=== PATIENT | male | born 1965 | race Caucasian/White ===

== ENCOUNTER 2024-04-29 09:39 | Outpatient (AMB) | payer MEDICAID, SELFPAY ==
[2024-04-29 11:04] VITALS: BP 145/93; PULSE 91; RESP 19; TEMP 36.4; O2SAT 92; BMI 34.4
--- NOTE | 2024-04-29 11:04 | ORTHONT_ITS ---
Vital signs 04/29/24 11:04 Height 1.65 m Height Method Stated Weight 93.667 kg Weight Measurement Method Standing Scale BMI 34.4 BP 145/93 H Blood Pressure Source Automatic Cuff Blood Pressure Location Left Upper Arm Position Sitting Respiration 19 Pulse 91 Pulse Source Monitor Temp 97.5 F Temp Source Temporal Artery Scan Pulse Oximetry (%) 92 L Oxygen Delivery Method Room Air Med/Allergies Allergies & Medications Allergies No Known Allergies Allergy (Verified 04/29/24 11:04) Subjective Visit Visit for: follow up visit and knee Immunization / Flu Flu Vaccine in the Last 12 Months: No Flu Vaccine Exclusion Criteria: No Exclusion Criteria History of Present Illness Chief complaint: BILATERAL KNEE PAIN Patient is a pleasant 57-year-old male with bilateral knee pain. He has significant varus deformity. He is using a cane. The pains been ongoing for over a year. He is tried over 3 injection as his knees. He has tried anti- inflammatories including ibuprofen as well. 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 Exam Exam Patient is in no acute distress and is cooperative with the examination today. Breathing is nonlabored. In no respiratory distress. Bilateral extremities were evaluated and demonstrates sensation intact to light touch. Palpable pedal pulses are present. No significant edema is present. Bilateral hips were examined. The patient has no pain with log roll of the hips. Internal rotation to 30 degrees and external rotation to 30 degrees is painless. Negative FADIR. The left knee was examined. The left knee is in [varus] alignment. Range of motion from [0-115] degrees. Knee is stable to varus and valgus as well as AP translation with <5mm. Patient has a [negative] McMurrays. There is [no] pain with patellofemoral compression and [no] crepitus noted. The knee is [tender] to palpation [medially]. The right knee was also examined. The right knee is in [varus] alignment. Range of motion from [0-120] degrees. Knee is stable to varus and valgus as well as AP translation with <5mm. Patient has a [negative] McMurrays. There is [no] pain with patellofemoral compression and [no] crepitus noted. The knee is [tender] to palpation [medially]. X-rays demonstrate significant varus alignment and deformity. There is completeObliteration of the medial joint space Assessment and Plan Problem List (1) Degenerative arthritis of knee, bilateral: Status: Acute Plan: Patient is a pleasant 57-year-old male with bilateral knee arthritis with a significant severity. We discussed nonoperative and operative options. He is failed conservative treatment occluding anti-inflammatories, and injections. We thus discussed total knee replacement as a reasonable option. He would like to start on the right as this is significantly worse. We answered all his questions today Plan The nature and purpose of the total knee replacement, alternative method(s) of treatment, the material risks involved, and the possibility of complications were fully explained to the patient. The patient does NOT have any of the following contraindications to TKA: - Active infection of the knee joint, OR - Active systemic bacteremia, OR - Active skin infection or open wound at surgical site, OR - Neuropathic arthritis, OR - Severe, rapidly progressive neurological disease, OR - Severe medical condition that makes risks of surgery outweigh the potential benefit The patient was told the most common risks and complications associated with a total knee replacement include, but are not limited to: blood clots in the leg, fatal pulmonary embolism, dislocation of the prosthesis, intraoperative and postoperative fractures of the femur or tibia, infection, failure of the prosthesis or grafting materials, complications from anesthesia, reactions to blood transfusions, postoperative leg length inequality, instability of the knee replacement, nerve damage or injury, vascular injury, delayed wound healing, infection, other injury or even . In addition, there are risks associated with anesthesia given during this operation. Also, the patient was told that after undergoing a total knee replacement there may still be persistent pain or disability. The patient was informed that the success of this operation in part depends upon the mechanical devices which are going to be implanted and that these devices can fail or malfunction, and may need to be repaired or replaced and there are no guarantees as to the longevity of this device or its parts and that it or its parts could fail prematurely. The patient was also notified that during the course of surgery, there may be a need to use bone graft from donors, and that any bone graft used will be carefully screened for communicable diseases, including AIDS, hepatitis, Mendez-Creutzfeldt, or other diseases, but despite the screening procedures, there is a small chance that they could contract one of these diseases. Finally, the patient was asked to follow completely and fully with all advice and recommended treatments, and that recovery and ultimate outcome are affected by their compliance with recommended treatment. We discussed the risks, benefits and treatment alternatives, and the patient is interested in proceeding with surgery. We will try to set this up as expeditiously as possible. Office Procedures GNS Level of Care Nursing/Assessment Patient Status: Established Patient Nursing Assessment/Reassesment: Medication Reconciliation, Update PMH in EMR and Vital Signs Coordination of Care: Complex Care and Chronic Disease 1-5, Education Complex Pt/Fam, Consent,records obtained, informed consent, Results/Orders obtained and Staff clarify orders Special Needs: Language special needs Established Patient Charge Established Patient Point Assignment: 95 Established Patient Point Charge: EP Level 3 (80-115) Past Medical History Past Medical History Have you ever been diagnosed with any of the following: Respiratory Problems Smoking: No Smoking Exposure: No Tobacco Use: No
== END 2024-04-29 11:28 | disposition home or self-care (01) ==
LOC: HODSRG 09:39
PROVIDERS: Supervising Provider Orthopaedic Surgery Adult Reconstructive Orthopaedic Surgery; Visit Provider Orthopaedic Surgery Adult Reconstructive Orthopaedic Surgery
DX: M17.0 Bilateral primary osteoarthritis of knee (principal); M25.562 Pain in left knee; M25.561 Pain in right knee; M21.10 Varus deformity, not elsewhere classified, unspecified site
CPT/HCPCS: 99213; G0463

== ENCOUNTER → 2024-05-05 | Day surgery (SDC) | payer MEDICAID, SELFPAY ==
[2024-05-02 09:52] VITALS: BMI 32.1
[2024-05-02 11:24] LABS: Basophils # (Auto) 0.1 Thou/mm3 (0.0-0.2); Basophils % (Auto) 1 % (0-2.5); Eosinophils % (Auto) 0 % (0-10); Hematocrit 44.9 % (41.0-53.0); Hemoglobin 15.2 g/dL (13.5-16.0); Immature Granulocytes % (Auto) 7 % (0-0); Immature Granulocytes Auto 0.67 Thou/mm3 (0.00-0.00); Lymphocytes # (Auto) 1.8 Thou/mm3 (1.0-4.8); Lymphocytes % (Auto) 18 % (10-50); Mean Corpuscular HGB Conc 33.9 g/dl (31.0-37.0); Mean Corpuscular Hemoglobin 32.2 pg (25.0-35.0); Mean Corpuscular Volume 95 fL (80-100); Monocytes # (Auto) 0.7 Thou/mm3 (0.0-0.8); Monocytes % (Auto) 7 % (0-12); Neutrophils # (Auto) 6.7 Thou/mm3 (1.8-7.7); Neutrophils % (Auto) 68 % (37-80); Nucleated Red Blood Cell # 0.03 Thou/mm3 (0.00-0.00); Nucleated Red Blood Cell % 0 /100 WBC (0); Platelet Count 220 Thou/mm3 (140-440); RDW Standard Deviation 52.3 fL (35.1-43.9); Red Blood Count 4.72 Miln/mm3 (4.50-5.90)
[2024-05-02 11:38] LABS: Alanine Aminotransferase 150 U/L (10-49); Albumin, Serum 4.7 gm/dL (3.5-5.0); Alkaline Phosphatase 200 U/L (46-116); Anion Gap 7 (7-16); Aspartate Amino Transferase 42 U/L (0-34); BUN/Creatinine Ratio 29 Ratio (12-20); Bilirubin,Total 0.9 mg/dL (0.3-1.2); Blood Urea Nitrogen 23 mg/dL (9-23); Calcium 9.4 mg/dL (8.3-10.6); Calcium (Corrected) 9.4 mg/dL (8.5-10.1); Carbon Dioxide 27.4 mMol/L (20.0-31.0); Chloride 103 mMol/L (98-107); Creatinine (Component) 0.8 mg/dL (0.6-1.3); Estimated Creatinine Clearance 109.3 mL/min (>60); Globulin 2.4 gm/dL (2.3-3.5); Glucose 364 mg/dL (74-106); Osmolality,Calculated 292 (275-295); Potassium 4.4 mMol/L (3.4-5.1); Sodium 137 mMol/L (136-145); Total Protein 7.1 gm/dL (5.7-8.2); eGFR > 60 See Note
[2024-05-02 12:20] LABS: INR 0.9 (0.9-1.3); Partial Thromboplastin Time 22.2 Seconds (22.0-36.0); Prothrombin Time 9.8 Seconds (9.0-12.2)
--- NOTE | 2024-05-02 14:29 | SUR.PREOP ---
Pt's glucose 364, I contacted pt, he stated he was told by primary Dr that he was prediabetic and was given meds which when he was done with those, he was prescribed another med for diabetes, pt stated he was not feeling well with the new diabetes meds and went back to primary Dr which told him it was ok to stop taking them but did not prescribed new ones, pt stated he came fasting this morning, Dr Birch was notified and he stated he wants A1c on arrival on Sunday. Pt's AST its 150 Dr Birch notified.
--- NOTE | 2024-05-02 15:29 | SUR.PREOP ---
Labs reviewed with Dr Gutiérrez. Dr Gutiérrez notified about A1c order for Sunday morning, Lab stated A1c takes 1 to 2 hrs to result and if its too high it will be a send out, message left at Dr Birch's office about how long it takes for A1c.
--- NOTE | 2024-05-02 15:32 | SUR.PREOP ---
Cardiac records reviewed with Dr Gutiérrez.
[2024-05-05 08:47] LABS: Glucose Estimated Average 246 mg/dL (80-131); Hemoglobin A1C 10.2 % Hgb (4.8-6.0)
[2024-05-05 08:50] VITALS: BP 131/91; PULSE 84; RESP 16; TEMP 36.2; O2SAT 97; BMI 31.9
--- NOTE | 2024-05-05 09:00 | SUR.PREOP ---
Dr. Birch made aware of A1C results and glucose of 302 this morning. Pt states he has not ate or drank anything since [address] Birch states he will talk to patient regarding results and provide further instructions.
--- NOTE | 2024-05-05 10:05 | SUR.PREOP ---
Dr. Birch at bedside. Surgery cancelled by Dr. Birch due to A1C level. Pt aware to follow up with primary care physician and surgery will be rescheduled.
== END | disposition home or self-care (01) ==
LOC: S2EX 08:20
PROVIDERS: Anesthesiology; PCP Physician Assistant; Referring Provider Orthopaedic Surgery Adult Reconstructive Orthopaedic Surgery; Visit Provider Orthopaedic Surgery Adult Reconstructive Orthopaedic Surgery
PROC: (CPT 27447; principal; 2024-05-05 12:45)
DX: M17.11 Unilateral primary osteoarthritis, right knee (principal); Z53.8 Procedure and treatment not carried out for other reasons
CPT/HCPCS: 27447; 36415; 80048; 80053; 83036; 85025; 85610; 85730

== ENCOUNTER 2024-05-23 09:50 | Outpatient (AMB) | payer MEDICAID, SELFPAY ==
--- NOTE | 2024-05-23 10:21 | PD.ORTHCLVIS ---
Vital signs 05/23/24 10:22 Height 1.68 m Height Method Stated Weight 93.497 kg Weight Measurement Method Standing Scale BMI 33.3 BP 132/85 H Blood Pressure Source Automatic Cuff Blood Pressure Location Left Upper Arm Position Sitting Respiration 18 Pulse 113 H Pulse Source Monitor Temp 97.3 F Temp Source Temporal Artery Scan Pulse Oximetry (%) 96 Oxygen Delivery Method Room Air Med/Allergies Allergies & Medications Allergies No Known Allergies Allergy (Verified 05/23/24 10:22) Medication Reconciliation losartan 50 mg tablet 50 mg PO QDAY 05/02/24 [History Confirmed 05/23/24] empagliflozin 10 mg tablet (Jardiance) 10 mg PO QAM 05/23/24 [History Confirmed 05/23/24] glipizide 2.5 mg tablet 2.5 mg PO QDAY 05/23/24 [History Confirmed 05/23/24] metformin 500 mg tablet 500 mg PO QDAY 05/23/24 [History Confirmed 05/23/24] Exam Exam Patient is in no acute distress and is cooperative with the examination today. Breathing is nonlabored. In no respiratory distress. Bilateral extremities were evaluated and demonstrates sensation intact to light touch. Palpable pedal pulses are present. No significant edema is present. Bilateral hips were examined. The patient has no pain with log roll of the hips. Internal rotation to 30 degrees and external rotation to 30 degrees is painless. Negative FADIR. The left knee was examined. The left knee is in [varus] alignment. Range of motion from [0-115] degrees. Knee is stable to varus and valgus as well as AP translation with <5mm. Patient has a [negative] McMurrays. There is [no] pain with patellofemoral compression and [no] crepitus noted. The knee is [tender] to palpation [medially]. The right knee was also examined. The right knee is in [varus] alignment. Range of motion from [0-120] degrees. Knee is stable to varus and valgus as well as AP translation with <5mm. Patient has a [negative] McMurrays. There is [no] pain with patellofemoral compression and [no] crepitus noted. The knee is [tender] to palpation [medially]. X-rays demonstrate significant varus alignment and deformity. There is completeObliteration of the medial joint space Assessment and Plan Problem List (1) Degenerative arthritis of knee, bilateral: Status: Acute Plan: Patient is a pleasant 57-year-old male with bilateral knee arthritis with a significant severity. We discussed nonoperative and operative options. He is failed conservative treatment occluding anti-inflammatories, and injections. We thus discussed total knee replacement as a reasonable option. He would like to start on the right as this is significantly worse. We answered all his questions today Plan We are currently awaiting a hemoglobin A1c that demonstrates that sugars are well-controlled. We are ordering 1 for him today. We can schedule for surgery once his sugars are Office Procedures GNS Level of Care Nursing/Assessment Patient Status: Established Patient Nursing Assessment/Reassesment: Medication Reconciliation, Update PMH in EMR and Vital Signs Coordination of Care: Complex Care and Chronic Disease 1-5, Education Complex Pt/Fam, 1 Ins Authorization and Staff clarify orders Special Needs: Language special needs Established Patient Charge Established Patient Point Assignment: 100 Established Patient Point Charge: EP Level 3 (80-115) MA Intake Visit Data Collection New Patient or Established: Established Patient (seen at [facility] within 3 years) Reason for Visit:: RT KNEE PAIN Seen by Clinical Staff ONLY (RN/MA): No Gypsum Roofer Required: Yes PCP or OBGYN visit in last 3 months: Yes Do You Feel Safe at Home: Yes Questionairres Past Medical History Past Medical History Have you ever been diagnosed with any of the following: Neurological Problems Seizures: No Cardiology Problems Congestive Heart Failure: No Hypertension: Yes Respiratory Problems Chronic Obstructive Pulmonary Disease (COPD): No Smoking: No Smoking Exposure: No Tobacco Use: No Stomache/Intestinal Problems Obesity: Yes Genital/Urinary Problems Renal Disease: No Musculoskeletal Problems Arthritis: Yes Endocrine Problems Diabetes Mellitus Type 1: No Diabetes Mellitus Type 2: No Other Problems Hospitalization: No Shingles: No Blood Transfusions: No Blood Transfusion Reaction: No Anesthesia Reactions: No Cancer: No Subjective Visit Visit for: follow up visit and knee Immunization / Flu Flu Vaccine in the Last 12 Months: Yes Flu Vaccine Exclusion Criteria: Already Received History of Present Illness Chief complaint: RT KNEE PAIN Patient is a 58-year-old male with right knee pain and right knee arthritis. He has significant arthritis and was set up for surgery. His surgery was canceled as his A1c was over 10. We will repeat his hemoglobin A1c. I discussed with him that needs to be under 8 in order to proceed with surgery Personal History BMI Counceling provided: Yes Pain Pain level (0-10): 8 Pain duration: CONSTANT Pain location: inside (medial), outside (lateral), anterior and posterior Pain quality: aching Pain timing: increases with activity Associated signs & symptoms: weakness Ambulatory data Ambulatory device: cane Treatments Number of previous injections: 2 Improvement with previous injections: No Review of Systems Review of Systems: All systems negative unless otherwise noted in HPI.
[2024-05-23 10:22] VITALS: BP 132/85; PULSE 113; RESP 18; TEMP 36.3; O2SAT 96; BMI 33.3
== END 2024-05-23 10:45 | disposition home or self-care (01) ==
LOC: HODSRG 09:50
PROVIDERS: PCP Physician Assistant; Referring Provider Physician Assistant; Supervising Provider Orthopaedic Surgery Adult Reconstructive Orthopaedic Surgery; Visit Provider Orthopaedic Surgery Adult Reconstructive Orthopaedic Surgery
DX: M17.0 Bilateral primary osteoarthritis of knee (principal); M25.561 Pain in right knee; I10 Essential (primary) hypertension
CPT/HCPCS: 99213; G0463

== ENCOUNTER 2024-06-24 11:59 | Outpatient (AMB) | payer MEDICAID, SELFPAY ==
--- NOTE | 2024-06-24 11:56 | PD.ORTHTELE ---
Med/Allergies Allergies & Medications Allergies No Known Allergies Allergy (Verified 06/24/24 11:56) Medication Reconciliation losartan 50 mg tablet 50 mg PO QDAY 05/02/24 [History Confirmed 06/24/24] empagliflozin 10 mg tablet (Jardiance) 10 mg PO QAM 05/23/24 [History Confirmed 06/24/24] glipizide 2.5 mg tablet 2.5 mg PO QDAY 05/23/24 [History Confirmed 06/24/24] metformin 500 mg tablet 500 mg PO QDAY 05/23/24 [History Confirmed 06/24/24] Subjective Visit Visit for: follow up visit, knee and other (specify) Immunization / Flu Flu Vaccine in the Last 12 Months: Yes Flu Vaccine Exclusion Criteria: Already Received History of Present Illness Chief complaint: F/U A1C 7 SURGERY RIGHT KNEE WORSEN Patient is a pleasant 57-year-old male with bilateral knee pain. He has significant varus deformity. He is using a cane. The pains been ongoing for over a year. He is tried over 3 injection as his knees. He has tried anti-inflammatories including ibuprofen as well. His sugars are now well-controlled and his hemoglobin A1c is 6.1. 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 Assessment and Plan Problem List (1) Degenerative arthritis of knee, bilateral: Status: Acute Plan Patient is a 58-year-old male with severe arthritis of both knees with complete obliteration of the medial joint space and varus deformity. We were previously waiting for his sugars to be well-controlled. His hemoglobin A1c is now 6.1. We thus discussed total knee replacement is a reasonable option. He would like to start on the right The nature and purpose of the total knee replacement, alternative method(s) of treatment, the material risks involved, and the possibility of complications were fully explained to the patient. The patient does NOT have any of the following contraindications to TKA: - Active infection of the knee joint, OR - Active systemic bacteremia, OR - Active skin infection or open wound at surgical site, OR - Neuropathic arthritis, OR - Severe, rapidly progressive neurological disease, OR - Severe medical condition that makes risks of surgery outweigh the potential benefit The patient was told the most common risks and complications associated with a total knee replacement include, but are not limited to: blood clots in the leg, fatal pulmonary embolism, dislocation of the prosthesis, intraoperative and postoperative fractures of the femur or tibia, infection, failure of the prosthesis or grafting materials, complications from anesthesia, reactions to blood transfusions, postoperative leg length inequality, instability of the knee replacement, nerve damage or injury, vascular injury, delayed wound healing, infection, other injury or even . In addition, there are risks associated with anesthesia given during this operation. Also, the patient was told that after undergoing a total knee replacement there may still be persistent pain or disability. The patient was informed that the success of this operation in part depends upon the mechanical devices which are going to be implanted and that these devices can fail or malfunction, and may need to be repaired or replaced and there are no guarantees as to the longevity of this device or its parts and that it or its parts could fail prematurely. The patient was also notified that during the course of surgery, there may be a need to use bone graft from donors, and that any bone graft used will be carefully screened for communicable diseases, including AIDS, hepatitis, Mendez-Creutzfeldt, or other diseases, but despite the screening procedures, there is a small chance that they could contract one of these diseases. Finally, the patient was asked to follow completely and fully with all advice and recommended treatments, and that recovery and ultimate outcome are affected by their compliance with recommended treatment. We discussed the risks, benefits and treatment alternatives, and the patient is interested in proceeding with surgery. We will try to set this up as expeditiously as possible. Office Procedures GNS Level of Care Nursing/Assessment Patient Status: Established Patient Nursing Assessment/Reassesment: Medication Reconciliation, Update PMH in EMR and Vital Signs Coordination of Care: Complex Care and Chronic Disease 1-5, Education Complex Pt/Fam, Consent,records obtained, informed consent, 2-3 Insurance Autorizations needed, Lab and Imaging orders, Results/Orders obtained and Staff clarify orders Special Needs: Language special needs Established Patient Charge Established Patient Point Assignment: 130 Telehealth Telemed Phone/Video with patient at home & Dr,PA,LEVEL VIAL CURVATURE GAUGER: Yes
== END 2024-06-24 12:59 | disposition home or self-care (01) ==
LOC: HODSRG 11:59
PROVIDERS: PCP Physician Assistant; Referring Provider Physician Assistant; Supervising Provider Orthopaedic Surgery Adult Reconstructive Orthopaedic Surgery; Visit Provider Orthopaedic Surgery Adult Reconstructive Orthopaedic Surgery
DX: M17.0 Bilateral primary osteoarthritis of knee (principal); M21.162 Varus deformity, not elsewhere classified, left knee; M21.161 Varus deformity, not elsewhere classified, right knee
CPT/HCPCS: 99212; G0463

== ENCOUNTER 2024-07-01 11:40 | Outpatient (AMB) | payer MEDICAID, SELFPAY ==
[2024-07-01 11:44] VITALS: BP 143/91; PULSE 93; RESP 18; TEMP 36.6; O2SAT 96; BMI 32.3
--- NOTE | 2024-07-01 11:44 | PD.ORTHCLVIS ---
Vital signs 07/01/24 11:44 Height 1.68 m Height Method Stated Weight 91.314 kg Weight Measurement Method Standing Scale BMI 32.3 BP 143/91 H Blood Pressure Source Automatic Cuff Blood Pressure Location Left Upper Arm Position Sitting Respiration 18 Pulse 93 Pulse Source Monitor Temp 97.8 F Temp Source Temporal Artery Scan Pulse Oximetry (%) 96 Oxygen Delivery Method Room Air Med/Allergies Allergies & Medications Allergies No Known Allergies Allergy (Verified 07/01/24 11:46) Medication Reconciliation losartan 50 mg tablet 50 mg PO QDAY 05/02/24 [History Confirmed 07/01/24] empagliflozin 10 mg tablet (Jardiance) 10 mg PO QAM 05/23/24 [History Confirmed 07/01/24] glipizide 2.5 mg tablet 2.5 mg PO QDAY 05/23/24 [History Confirmed 07/01/24] metformin 500 mg tablet 500 mg PO QDAY 05/23/24 [History Confirmed 07/01/24] Exam Exam Patient is in no acute distress and is cooperative with the examination today. Breathing is nonlabored. In no respiratory distress. Bilateral extremities were evaluated and demonstrates sensation intact to light touch. Palpable pedal pulses are present. No significant edema is present. Bilateral hips were examined. The patient has no pain with log roll of the hips. Internal rotation to 30 degrees and external rotation to 30 degrees is painless. Negative FADIR. The left knee was examined. The left knee is in [varus] alignment. Range of motion from [0-115] degrees. Knee is stable to varus and valgus as well as AP translation with <5mm. Patient has a [negative] McMurrays. There is [no] pain with patellofemoral compression and [no] crepitus noted. The knee is [tender] to palpation [medially]. The right knee was also examined. The right knee is in [varus] alignment. Range of motion from [0-120] degrees. Knee is stable to varus and valgus as well as AP translation with <5mm. Patient has a [negative] McMurrays. There is [no] pain with patellofemoral compression and [no] crepitus noted. The knee is [tender] to palpation [medially]. X-rays demonstrate significant varus alignment and deformity. There is completeObliteration of the medial joint space Assessment and Plan Problem List (1) Degenerative arthritis of knee, bilateral: Status: Acute Plan Patient is a 58-year-old male with severe arthritis of both knees with complete obliteration of the medial joint space and varus deformity. We were previously waiting for his sugars to be well-controlled. His hemoglobin A1c is now 6.1. We thus discussed total knee replacement is a reasonable option. He would like to start on the right The nature and purpose of the total knee replacement, alternative method(s) of treatment, the material risks involved, and the possibility of complications were fully explained to the patient. The patient does NOT have any of the following contraindications to TKA: - Active infection of the knee joint, OR - Active systemic bacteremia, OR - Active skin infection or open wound at surgical site, OR - Neuropathic arthritis, OR - Severe, rapidly progressive neurological disease, OR - Severe medical condition that makes risks of surgery outweigh the potential benefit The patient was told the most common risks and complications associated with a total knee replacement include, but are not limited to: blood clots in the leg, fatal pulmonary embolism, dislocation of the prosthesis, intraoperative and postoperative fractures of the femur or tibia, infection, failure of the prosthesis or grafting materials, complications from anesthesia, reactions to blood transfusions, postoperative leg length inequality, instability of the knee replacement, nerve damage or injury, vascular injury, delayed wound healing, infection, other injury or even . In addition, there are risks associated with anesthesia given during this operation. Also, the patient was told that after undergoing a total knee replacement there may still be persistent pain or disability. The patient was informed that the success of this operation in part depends upon the mechanical devices which are going to be implanted and that these devices can fail or malfunction, and may need to be repaired or replaced and there are no guarantees as to the longevity of this device or its parts and that it or its parts could fail prematurely. The patient was also notified that during the course of surgery, there may be a need to use bone graft from donors, and that any bone graft used will be carefully screened for communicable diseases, including AIDS, hepatitis, Mendez-Creutzfeldt, or other diseases, but despite the screening procedures, there is a small chance that they could contract one of these diseases. Finally, the patient was asked to follow completely and fully with all advice and recommended treatments, and that recovery and ultimate outcome are affected by their compliance with recommended treatment. We discussed the risks, benefits and treatment alternatives, and the patient is interested in proceeding with surgery. We will try to set this up as expeditiously as possible. Office Procedures GNS Level of Care Nursing/Assessment Patient Status: Established Patient Nursing Assessment/Reassesment: Medication Reconciliation, Update PMH in EMR and Vital Signs Coordination of Care: Complex Care and Chronic Disease 1-5, Education Complex Pt/Fam, Consent,records obtained, informed consent and Staff clarify orders Special Needs: Language special needs Established Patient Charge Established Patient Point Assignment: 90 Established Patient Point Charge: EP Level 3 (80-115) MA Intake Visit Data Collection New Patient or Established: Established Patient (seen at [facility] within 3 years) Reason for Visit:: PRE OP RIGHT TKA Seen by Clinical Staff ONLY (RN/MA): No Family Advocate Required: Yes PCP or OBGYN visit in last 3 months: Yes Hx Now: No Do You Feel Safe at Home: Yes Authorities Contacted: N/A Questionairres Past Medical History Past Medical History Have you ever been diagnosed with any of the following: Neurological Problems Seizures: No Cardiology Problems Congestive Heart Failure: No Hypertension: Yes Respiratory Problems Chronic Obstructive Pulmonary Disease (COPD): No Smoking: No Smoking Exposure: No Tobacco Use: No Stomache/Intestinal Problems Obesity: Yes Genital/Urinary Problems Renal Disease: No Musculoskeletal Problems Arthritis: Yes Endocrine Problems Diabetes Mellitus Type 1: No Diabetes Mellitus Type 2: No Other Problems Hospitalization: No Shingles: No Blood Transfusions: No Blood Transfusion Reaction: No Anesthesia Reactions: No Cancer: No Subjective Visit Visit for: follow up visit and knee Immunization / Flu Flu Vaccine in the Last 12 Months: No Flu Vaccine Exclusion Criteria: No Exclusion Criteria History of Present Illness Chief complaint: RT KNEE PAIN Patient is a 58-year-old male with right knee pain and right knee arthritis. He has significant arthritis and was set up for surgery. His surgery was canceled as his A1c was over 10. We will repeat his hemoglobin A1c. I discussed with him that needs to be under 8 in order to proceed with surgery Personal History BMI Counceling provided: Yes Pain Pain level (0-10): 6 Pain duration: CONSTANT Pain location: inside (medial), outside (lateral), anterior and posterior Pain quality: aching Pain timing: increases with activity Associated signs & symptoms: none Ambulatory data Ambulatory device: cane Treatments Number of previous injections: 2 Improvement with previous injections: No Improvement with PT: No Improvement with NSAIDS: no Review of Systems Review of Systems: All systems negative unless otherwise noted in HPI.
== END 2024-07-01 11:48 | disposition home or self-care (01) ==
LOC: HODSRG 11:40
PROVIDERS: PCP Physician Assistant; Referring Provider Physician Assistant; Supervising Provider Orthopaedic Surgery Adult Reconstructive Orthopaedic Surgery; Visit Provider Orthopaedic Surgery Adult Reconstructive Orthopaedic Surgery
DX: M17.0 Bilateral primary osteoarthritis of knee (principal); M21.162 Varus deformity, not elsewhere classified, left knee; M21.161 Varus deformity, not elsewhere classified, right knee; M25.561 Pain in right knee; I10 Essential (primary) hypertension
CPT/HCPCS: 99213; G0463

== ENCOUNTER 2024-07-09 10:45 | Day surgery (SDC) | payer MEDICAID, SELFPAY ==
[2024-07-08 11:11] VITALS: BMI 32.4
[2024-07-08 12:36] LABS: Basophils # (Auto) 0.1 Thou/mm3 (0.0-0.2); Basophils % (Auto) 1 % (0-2.5); Eosinophils % (Auto) 0 % (0-10); Hematocrit 49.7 % (41.0-53.0); Hemoglobin 16.3 g/dL (13.5-16.0); Immature Granulocytes % (Auto) 2 % (0-0); Immature Granulocytes Auto 0.22 Thou/mm3 (0.00-0.00); Lymphocytes % (Auto) 17 % (10-50); Mean Corpuscular HGB Conc 32.8 g/dl (31.0-37.0); Mean Corpuscular Hemoglobin 30.5 pg (25.0-35.0); Mean Corpuscular Volume 93 fL (80-100); Monocytes # (Auto) 1.1 Thou/mm3 (0.0-0.8); Monocytes % (Auto) 9 % (0-12); Neutrophils # (Auto) 8.3 Thou/mm3 (1.8-7.7); Neutrophils % (Auto) 71 % (37-80); Nucleated Red Blood Cell % 0 /100 WBC (0); Platelet Count 236 Thou/mm3 (140-440); RDW Standard Deviation 42.3 fL (35.1-43.9); Red Blood Count 5.35 Miln/mm3 (4.50-5.90); White Blood Count 11.7 Thou/mm3 (3.8-10.6)
[2024-07-08 12:45] LABS: INR 0.9 (0.9-1.3); Partial Thromboplastin Time 26.2 Seconds (22.0-36.0); Prothrombin Time 10.2 Seconds (9.0-12.2)
[2024-07-08 12:48] LABS: Alanine Aminotransferase 45 U/L (10-49); Albumin, Serum 4.5 gm/dL (3.5-5.0); Alkaline Phosphatase 107 U/L (46-116); Anion Gap 7 (7-16); Aspartate Amino Transferase 21 U/L (0-34); BUN/Creatinine Ratio 18 Ratio (12-20); Bilirubin,Total 0.6 mg/dL (0.3-1.2); Blood Urea Nitrogen 16 mg/dL (9-23); Calcium 9.8 mg/dL (8.3-10.6); Calcium (Corrected) 9.8 mg/dL (8.5-10.1); Carbon Dioxide 27.3 mMol/L (20.0-31.0); Chloride 107 mMol/L (98-107); Creatinine (Component) 0.9 mg/dL (0.6-1.3); Estimated Creatinine Clearance 94.6 mL/min (>60); Globulin 2.3 gm/dL (2.3-3.5); Glucose 86 mg/dL (74-106); Osmolality,Calculated 281 (275-295); Potassium 3.9 mMol/L (3.4-5.1); Sodium 141 mMol/L (136-145); Total Protein 6.8 gm/dL (5.7-8.2); eGFR > 60 See Note
--- NOTE | 2024-07-08 14:53 | SUR.PREOP ---
WBC 11.7, neutrophils 8.3, Dr Birch notified and ok to proceed, cardiac history and records reviewed with Dr Gutiérrez.
[2024-07-09] VITALS (9 sets, daily range): BP systolic 93–129; BP diastolic 65–84; PULSE 78–91; RESP 10–20; TEMP 36.2–36.4; O2SAT 95–98; BMI 31.6
[2024-07-09] MEDS: ACETAMINOPHEN 325 MG TABLET 650 MG PO (11:29)
[2024-07-09] MEDS: MELOXICAM 7.5 MG TABLET PO (11:30)
[2024-07-09] MEDS: RINGERS LACTATED 1000 ML 1,000 ML 20 ML IV (11:30)
[2024-07-09] MEDS: PREGABALIN 75 MG CAPSULE PO (11:30)
--- NOTE | 2024-07-09 15:27 | ESOP_ITS ---
Date of Procedure 07/09/24 Pre Op Diagnosis right knee osteoarthritis Post Op Diagnosis right knee osteoarthritis Procedure right total knee replacement robotic Findings full thickness cartilage loss and osteophytes Procedure Description Indication: The patient is a 58 year old who has a long history of right knee pain. X-rays show degenerative arthritis involving the knee. Over the past several years the patient has had increasing pain, progressive limitation in function. He has failed conservative measures including activity modification, physical therapy, injections, anti-inflammatories, and assistive devices. After a lengthy discussion of the risks and benefits, the patient presents now for total knee replacement. The nature and purpose of the total knee replacement, alternative method(s) of treatment, the material risks involved, and the possibility of complications were fully explained to the patient. The patient was told the most common risks and complications associated with a total knee replacement include, but are not limited to blood clots in the leg, fatal pulmonary embolism, dislocation of the prosthesis, intraoperative and postoperative fractures of the femur or tibia, infection, failure of the prosthesis or grafting materials, complications from anesthesia, reactions to blood transfusions, postoperative leg length inequality, instability of the knee replacement, nerve damage or injury, vascular injury, delayed wound healing, infections, other injury or even . In addition, there are risks associated with anesthesia given during this operation, temporary or permanent numbness on the skin lateral to the incision can be a complication unique to total knee surgery, and kneeling can be painful after knee replacement surgery. Also, the patient was told that after undergoing a total knee replacement there may still be pain or disability. We discussed with the patient that we will be using a robot-assisted technology. We discussed that there is a possibility of converting to manual instrumentation. The patient was informed that the success of this operation in part depends upon the mechanical devices which are going to be implanted and that these devices can fail or malfunction, and may need to be repaired or replaced and there are no guarantees as to the longevity of this device or its part and that it or its parts could fail prematurely. Finally, the patient was asked to follow completely and fully with all advice and recommended treatments, and that recovery and ultimate outcome are affected by their compliance with recommended treatment. Surgical technique: Patient was marked and consented in the pre-operative area. The patient was brought to the operating room and placed on the operating table in a supine position. Prior to positioning, a timeout procedure was performed between the surgeon, the anesthesiologist, and the nursing staff where the patient and the operative side were identified and confirmed. After adequate general anesthetic was obtained, the right lower extremity was prepped and draped in the usual sterile fashion. A weight based dose of Cefazolin were administered within 1 hour prior to incision. The robot was preregistered and calirated before the incision. The extremity was exsanguinated with an esmarch badge and tourniquet inflated to 250mmHg. A midline incision was made. A median parapatellar arthrotomy was made. The patella was subluxed laterally. A medial release was performed to expose the medial tibia. His femoral and tibial pins were placed through an intra incisional manner for both cases. Every effort was made to ensure that the distalmost aspect of the pin was hung in the second cortex. The arrays were then tightened several times to ensure that it was fixed for the remainder of the case. Both femoral and tibial checkpoints were then placed. We then went through the registration process of the bone. We then assessed the knee deformity and attempted to correct it. We also used the robot to aid in judging laxity in both extension and flexion. Final based on laxity and alignment we changed the preoperative assessment to obtain proper proper implant positioning and to correct deformity. Attention was then placed to the tibia. We made a tibial cut using the robot ensuring that both the MCL and the patella tendon were protected with retractors. We then went to the femur and made the posterior cut followed by the anterior cut and the anterior chamfer. The bone was then removed and we made a distal femur cut and a posterior chamfer cut. We verified all cuts. A trial reduction was performed with a size 4 femoral component and a size 5 keeled tibial component. The patella tracked centrally, and no lateral retinacular release was necessary. The trial implants were removed. The arrays, pins, and checkpoints were all removed. We performed a verification that all pins were removed. The cut bone surfaces were lavaged. A size 4 right femoral component, a size 5 keeled tibial component were impacted into position. The knee was felt to be well balanced in the sagittal and coronal plane. The final 5 mm cruciate- substituting articular insert was impacted into the tibial tray. The knee was brought out to full extension, flexed up to 120 degrees. It was stable to varus and valgus stress and appropriately balanced in flexion and extension. The wounds were copiously irrigated following deflation of tourniquet. The medial retinaculum was reapproximated with #1 vicryl and quill. The subcutaneous tissues were closed with 0 and 2-0 interrupted Vicryl. The skin was closed with 3-0 Monofilament V loc suture. A sterile dressing was applied. The patient was transferred to a bed and brought to recovery in stable condition. The patient tolerated the procedure well. There were no intraoperative complications. Sponge and needle counts were correct times 2. As the attending surgeon, I attest I was present and performed the entire operation. Grafts/Implants Size 4 CR Femur Size 5 Tibia 11mm poly CS Anesthesia GETA [facility] / specimen None Pathology comment: none Estimated Blood Loss 150 Surgeon Geoffrey Birch MD Surgical Staff Operation Date: 07/09/24 14:15 Case supervisor fertilizer processingfarm assistant: Ruth Ann Aaron
--- NOTE | 2024-07-09 15:30 | XR_ITS ---
Examination: Right knee 2 views Technique one AP lateral right knee 2 views Exam date and time: July 09, 2024 at 1615 hours. INDICATIONS: Postop knee replacement FINDINGS: Total right knee arthroplasty. Satisfactory alignment No fracture IMPRESSION: Total right knee arthroplasty with satisfactory alignment
--- NOTE | 2024-07-09 15:56 | SUR.PHASEI ---
1556 Patient arrived to recovery resting comfortably in [facility], on oxygen 8L via oxy mask, breathing unlabored, vital signs stable, denies pain, dressing intact to right knee; prieno, telfa, abd, webril roll, bev wraps, no bleeding noted, lung sounds clear upon auscultation, bilateral dorsalis pedis pulses present when palpated, patient has good circultation to right lower extremity; skin color normal for patient and warm to touch, post spinal anesthesia assessment complete via ice patient has dermatome sensation at L3-thigh will continue to monitor, report received from David CLEARY/Soila SOUZA and Sahra ELISE/Dahlia ELISE
--- NOTE | 2024-07-09 16:42 | SUR.PHASEI ---
1618 XRAY complete per MD order
--- NOTE | 2024-07-09 16:45 | SUR.PHASEII ---
9605 Post spinal anesthesia complete, notified PT to evaluate patient
--- NOTE | 2024-07-09 17:15 | SUR.PHASEII ---
1715 Patient cleared by PT to proceed with discharge
--- NOTE | 2024-07-09 17:54 | SUR.PHASEII ---
1754 Patient meets discharge criteria from recovery, awake and alert, breathing unlabored, vital signs stable, denies pain, dressing intact; no bleeding noted, patient voided in restroom prior to discharge, patient ate a meal tray for dinner as well, denies nausea, patient assisted with dressing into his clothing by his , discharge instructions given to patient and his /son with the assistance of the telephone master police detective Vanessa ID#[id number], son signed discharge instructions. Patient given all her belongings prior to discharge, transported via wheelchair and left in a private vehicle.
== END 2024-07-09 17:54 | disposition home or self-care (01) ==
PROVIDERS: Anesthesiology; PCP Physician Assistant; Referring Provider Orthopaedic Surgery Adult Reconstructive Orthopaedic Surgery; Visit Provider Orthopaedic Surgery Adult Reconstructive Orthopaedic Surgery
PROC: (CPT 27447; principal; 2024-07-09 14:15)
DX: M17.11 Unilateral primary osteoarthritis, right knee (principal); M25.761 Osteophyte, right knee
CPT/HCPCS: 27447; 20985; 36415; 73560; 80053; 85025; 85610; 85730; 97162; A4217; C1713; C1776; J2250; J2371; J2704; J3010; J3490; J7030; J7120; J7999; A4648; A4649; A9270

== ENCOUNTER 2024-07-17 11:19 | Outpatient (AMB) | payer MEDICAID, SELFPAY ==
--- NOTE | 2024-07-17 11:15 | ORTHONT_ITS ---
Med/Allergies Allergies & Medications Allergies No Known Allergies Allergy (Verified 07/17/24 11:18) Medication Reconciliation losartan 50 mg tablet 50 mg PO QDAY 05/02/24 [History Confirmed 07/17/24] empagliflozin 10 mg tablet (Jardiance) 10 mg PO QAM 05/23/24 [History Confirmed 07/17/24] glipizide 2.5 mg tablet 2.5 mg PO QDAY 05/23/24 [History Confirmed 07/17/24] metformin 500 mg tablet 500 mg PO QDAY 05/23/24 [History Confirmed 07/17/24] semaglutide 0.25 mg or 0.5 mg (2 mg/3 mL) subcutaneous pen injector (Ozempic) 0.5 mg subcut QWEEK 07/08/24 [History Confirmed 07/17/24] acetaminophen 500 mg tablet (Acetaminophen Extra Strength) 1,000 mg (2 x 500 mg) PO Q6H PRN pain #90 tabs 07/09/24 [Rx Confirmed 07/17/24] aspirin 81 mg tablet,delayed release 81 mg PO BID #60 tabs 07/09/24 [Rx Confirmed 07/17/24] doxycycline hyclate 100 mg tablet 100 mg PO BID #14 tabs 07/09/24 [Rx Confirmed 07/17/24] gabapentin 300 mg capsule 300 mg PO .qhs #30 caps 07/09/24 [Rx Confirmed 07/17/24] oxycodone 5 mg tablet 5 mg PO Q6H PRN pain #28 tabs 07/09/24 [Rx Confirmed 07/17/24] sennosides 8.6 mg-docusate sodium 50 mg tablet (Senna-S) 1 tab-cap PO QDAY #30 tabs 07/09/24 [Rx Confirmed 07/17/24] Exam Exam His Picture that he sent the work phone demonstrates an incision that is cleanDry and intact. He has a popped blister at the inferior aspect of where the adhesive is. Assessment and Plan Problem List (1) History of total right knee replacement: Status: Acute Plan: Patient is a 58-year-old Male who had a right total knee replacement less than 2 weeks ago. He was in the hospital for prolonged period of time. The orthopedic surgeon on-call said that his knee x-ray was normal and that it is normal for postoperative knee. Believe that there was a skin reaction to the skin prep and recommended removing all tape and adhesives. We discussed that he should Remove the dressing and that his knee is actually normal. I would like to see him in person As he has missed several appointments already. We discussed with him if there are any issues that is better to call and go to the emergency room as the emergency room doctors and not used to seeing immediate postoperative patients. 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: Yes MA Intake Visit Data Collection New Patient or Established: Established Patient (seen at [facility] within 3 years) Reason for Visit:: F/U POST OP Seen by Clinical Staff ONLY (RN/MA): No Verbal consent obtained for Telemed visit?: No Community Outreach Manager Required: Yes PCP or OBGYN visit in last 3 months: Yes Hx Now: No Do You Feel Safe at Home: Yes Authorities Contacted: N/A Questionairres Past Medical History Past Medical History Have you ever been diagnosed with any of the following: Neurological Problems Seizures: No Cardiology Problems Congestive Heart Failure: No Hypertension: Yes Respiratory Problems Chronic Obstructive Pulmonary Disease (COPD): No Smoking: No Smoking Exposure: No Tobacco Use: No Stomache/Intestinal Problems Hepatitis: No Obesity: Yes Genital/Urinary Problems Renal Disease: No Musculoskeletal Problems Arthritis: Yes Endocrine Problems Diabetes Mellitus Type 1: No Diabetes Mellitus Type 2: Yes Other Problems Hospitalization: No Shingles: No Blood Transfusions: No Blood Transfusion Reaction: No Anesthesia Reactions: No Cancer: No Subjective Visit Visit for: follow up visit Immunization / Flu Flu Vaccine in the Last 12 Months: No Flu Vaccine Exclusion Criteria: No Exclusion Criteria History of Present Illness Chief complaint: TELEMED F/U KNEE POST OP Right knee painIs a pleasant 58-year-old male status post right total knee replacement less elyse 2 weeks ago. He went to the [facility] on Sunday for swelling. He was admitted and on IV antibiotics. Another orthopedic surgeon actually saw him when he was in the hospital and told him that his knee was actually normal and that it was just a skin reaction to the skin prep. This was an inpatient visit that was scheduled today but the patient reports that he cannot make it. He is not sending us a picture of the wound Review of Systems Review of Systems: All systems negative unless otherwise noted in HPI.
== END 2024-07-17 11:20 | disposition home or self-care (01) ==
LOC: HODSRG 11:19
PROVIDERS: PCP Physician Assistant; Referring Provider Physician Assistant; Supervising Provider Orthopaedic Surgery Adult Reconstructive Orthopaedic Surgery; Visit Provider Orthopaedic Surgery Adult Reconstructive Orthopaedic Surgery
DX: Z96.651 Presence of right artificial knee joint (principal); I10 Essential (primary) hypertension; E11.9 Type 2 diabetes mellitus without complications
CPT/HCPCS: 99212; G0463

== ENCOUNTER 2024-07-22 09:26 | Outpatient (AMB) | payer MEDICAID, SELFPAY ==
--- NOTE | 2024-07-22 10:36 | ORTHONT_ITS ---
Vital signs 07/22/24 10:38 Height 1.68 m Height Method Stated Weight 87.628 kg Weight Measurement Method Standing Scale BMI 31.0 BP 119/83 Blood Pressure Source Automatic Cuff Blood Pressure Location Left Upper Arm Position Sitting Respiration 19 Pulse 119 H Pulse Source Monitor Temp 97.8 F Temp Source Temporal Artery Scan Pulse Oximetry (%) 96 Oxygen Delivery Method Room Air Med/Allergies Allergies & Medications Allergies No Known Allergies Allergy (Verified 07/22/24 10:38) Medication Reconciliation losartan 50 mg tablet 50 mg PO QDAY 05/02/24 [History Confirmed 07/22/24] empagliflozin 10 mg tablet (Jardiance) 10 mg PO QAM 05/23/24 [History Confirmed 07/22/24] glipizide 2.5 mg tablet 2.5 mg PO QDAY 05/23/24 [History Confirmed 07/22/24] metformin 500 mg tablet 500 mg PO QDAY 05/23/24 [History Confirmed 07/22/24] semaglutide 0.25 mg or 0.5 mg (2 mg/3 mL) subcutaneous pen injector (Ozempic) 0.5 mg subcut QWEEK 07/08/24 [History Confirmed 07/22/24] acetaminophen 500 mg tablet (Acetaminophen Extra Strength) 1,000 mg (2 x 500 mg) PO Q6H PRN pain #90 tabs 07/09/24 [Rx Confirmed 07/22/24] aspirin 81 mg tablet,delayed release 81 mg PO BID #60 tabs 07/09/24 [Rx Confirmed 07/22/24] doxycycline hyclate 100 mg tablet 100 mg PO BID #14 tabs 07/09/24 [Rx Confirmed 07/22/24] gabapentin 300 mg capsule 300 mg PO .qhs #30 caps 07/09/24 [Rx Confirmed 07/22/24] oxycodone 5 mg tablet 5 mg PO Q6H PRN pain #28 tabs 07/09/24 [Rx Confirmed 07/22/24] sennosides 8.6 mg-docusate sodium 50 mg tablet (Senna-S) 1 tab-cap PO QDAY #30 tabs 07/09/24 [Rx Confirmed 07/22/24] Exam Exam Patient is in no acute distress and is cooperative with the examination today. Patient has a normal mood and affect. Breathing is nonlabored. In no respiratory distress. Bilateral extremities were evaluated and demonstrates sensation intact to light touch. Palpable pedal pulses are present. No significant edema is present. Right knee incisions clean dry intact. Range of motion is 0 to 85 degrees. He has a blister that is healed completely Assessment and Plan Problem List (1) History of total right knee replacement: Status: Acute Plan: Patient is a 58-year-old male status post right total knee replacement. He went to the hospital for swelling and was admitted for 4 days for some reason. The orthopedic surgeon was consulted and there x-rays that his knee was normal. He is still on antibiotics and is nauseous. I discussed with him that his new x- ray looks fantastic. I recommend that he discontinue antibiotics. He should see his primary care doctor for electrolyte issues. From my standpoint, his knee looks normal and we will see him in 4 weeks with new x-rays Office Procedures GNS Level of Care Nursing/Assessment Patient Status: Established Patient Nursing Assessment/Reassesment: Medication Reconciliation, Update PMH in EMR and Vital Signs Coordination of Care: Complex Care and Chronic Disease 1-5, Education Complex Pt/Fam, Consent,records obtained, informed consent, Results/Orders obtained and Staff clarify orders Special Needs: Language special needs Established Patient Charge Established Patient Point Assignment: 95 Established Patient Point Charge: EP Level 3 (80-115) MA Intake Visit Data Collection New Patient or Established: Established Patient (seen at [facility] within 3 years) Reason for Visit:: FOLLOW UP Seen by Clinical Staff ONLY (RN/MA): No Forensic Social Worker Required: Yes PCP or OBGYN visit in last 3 months: Yes Hx Now: No Do You Feel Safe at Home: Yes Authorities Contacted: N/A Questionairres Past Medical History Past Medical History Have you ever been diagnosed with any of the following: Neurological Problems Seizures: No Cardiology Problems Congestive Heart Failure: No Hypertension: Yes Respiratory Problems Chronic Obstructive Pulmonary Disease (COPD): No Smoking: No Smoking Exposure: No Tobacco Use: No Stomache/Intestinal Problems Hepatitis: No Obesity: Yes Genital/Urinary Problems Renal Disease: No Musculoskeletal Problems Arthritis: Yes Endocrine Problems Diabetes Mellitus Type 1: No Diabetes Mellitus Type 2: Yes Other Problems Hospitalization: No Shingles: No Blood Transfusions: No Blood Transfusion Reaction: No Anesthesia Reactions: No Cancer: No Subjective Visit Visit for: follow up visit and post op #2 Immunization / Flu Flu Vaccine in the Last 12 Months: No Flu Vaccine Exclusion Criteria: No Exclusion Criteria History of Present Illness Chief complaint: right knee arthritis Patient is a 58-year-old male who is 2-week status post right total knee replacement. He went to the hospital about 5 days after surgery for increased pain and swelling. He had a reaction to the tape and had a blister. It has resolved. They put him on antibiotics and he is nauseous. His wound actually looks fine. He saw an orthopedic surgeon over there who said his knee was absolutely normal and it was just a reaction to the prep or the tape. He reports that he is doing well. He is just nauseous because he is still on antibiotics for some reason. Pain Pain level (0-10): 10 Pain duration: ALL DAY Pain location: inside (medial) Pain quality: aching Pain timing: increases with activity and stairs Ambulatory data Ambulatory device: walker Treatments Improvement with previous injections: No Improvement with PT: No Improvement with NSAIDS: no Review of Systems Review of Systems: All systems negative unless otherwise noted in HPI.
[2024-07-22 10:38] VITALS: BP 119/83; PULSE 119; RESP 19; TEMP 36.6; O2SAT 96; BMI 31.0
== END 2024-07-22 10:45 | disposition home or self-care (01) ==
LOC: HODSRG 09:26
PROVIDERS: PCP Physician Assistant; Referring Provider Physician Assistant; Supervising Provider Orthopaedic Surgery Adult Reconstructive Orthopaedic Surgery; Visit Provider Orthopaedic Surgery Adult Reconstructive Orthopaedic Surgery
DX: Z96.651 Presence of right artificial knee joint (principal); M17.11 Unilateral primary osteoarthritis, right knee; I10 Essential (primary) hypertension; E11.9 Type 2 diabetes mellitus without complications
CPT/HCPCS: 99213; G0463

== ENCOUNTER 2024-08-19 10:24 | Outpatient (AMB) | payer MEDICAID, SELFPAY ==
[2024-08-19 10:47] VITALS: BP 135/85; PULSE 76; RESP 17; TEMP 36.2; O2SAT 98; BMI 31.5
--- NOTE | 2024-08-19 10:47 | ORTHONT_ITS ---
Vital signs 08/19/24 10:47 Height 1.68 m Height Method Stated Weight 88.904 kg Weight Measurement Method Standing Scale BMI 31.5 BP 135/85 H Blood Pressure Source Automatic Cuff Blood Pressure Location Right Upper Arm Position Sitting Respiration 17 Pulse 76 Pulse Source Monitor Temp 97.2 F Temp Source Temporal Artery Scan Pulse Oximetry (%) 98 Oxygen Delivery Method Room Air Med/Allergies Allergies & Medications Allergies No Known Allergies Allergy (Verified 08/19/24 10:48) Medication Reconciliation losartan 50 mg tablet 50 mg PO QDAY 05/02/24 [History Confirmed 08/19/24] empagliflozin 10 mg tablet (Jardiance) 10 mg PO QAM 05/23/24 [History Confirmed 08/19/24] glipizide 2.5 mg tablet 2.5 mg PO QDAY 05/23/24 [History Confirmed 08/19/24] metformin 500 mg tablet 500 mg PO QDAY 05/23/24 [History Confirmed 08/19/24] semaglutide 0.25 mg or 0.5 mg (2 mg/3 mL) subcutaneous pen injector (Ozempic) 0.5 mg subcut QWEEK 07/08/24 [History Confirmed 08/19/24] acetaminophen 500 mg tablet (Acetaminophen Extra Strength) 1,000 mg (2 x 500 mg) PO Q6H PRN pain #90 tabs 07/09/24 [Rx Confirmed 08/19/24] aspirin 81 mg tablet,delayed release 81 mg PO BID #60 tabs 07/09/24 [Rx Confirmed 08/19/24] doxycycline hyclate 100 mg tablet 100 mg PO BID #14 tabs 07/09/24 [Rx Confirmed 08/19/24] gabapentin 300 mg capsule 300 mg PO .qhs #30 caps 07/09/24 [Rx Confirmed 08/19/24] oxycodone 5 mg tablet 5 mg PO Q6H PRN pain #28 tabs 07/09/24 [Rx Confirmed 08/19/24] sennosides 8.6 mg-docusate sodium 50 mg tablet (Senna-S) 1 tab-cap PO QDAY #30 tabs 07/09/24 [Rx Confirmed 08/19/24] Exam Exam Patient is in no acute distress and is cooperative with the examination today. Patient has a normal mood and affect. Breathing is nonlabored. In no respiratory distress. Bilateral extremities were evaluated and demonstrates sensation intact to light touch. Palpable pedal pulses are present. No significant edema is present. Right knee incisions clean dry intact. Range of motion is 0 to 110 degrees. Incision is completely healed and it looks fantastic Assessment and Plan Problem List (1) History of total right knee replacement: Status: Acute Plan: Patient is a 58-year-old male status post right total knee replacement. He went to the hospital for swelling and was admitted for 4 days for some reason. The incision looks great and he is doing well. He reports the left knee is affecting his quality life and happiness. He has tried injections, anti- inflammatories and physical therapy. He would like the left knee replaced The nature and purpose of the total knee replacement, alternative method(s) of treatment, the material risks involved, and the possibility of complications were fully explained to the patient. The patient does NOT have any of the following contraindications to TKA: - Active infection of the knee joint, OR - Active systemic bacteremia, OR - Active skin infection or open wound at surgical site, OR - Neuropathic arthritis, OR - Severe, rapidly progressive neurological disease, OR - Severe medical condition that makes risks of surgery outweigh the potential benefit The patient was told the most common risks and complications associated with a total knee replacement include, but are not limited to: blood clots in the leg, fatal pulmonary embolism, dislocation of the prosthesis, intraoperative and postoperative fractures of the femur or tibia, infection, failure of the prosthesis or grafting materials, complications from anesthesia, reactions to blood transfusions, postoperative leg length inequality, instability of the knee replacement, nerve damage or injury, vascular injury, delayed wound healing, infection, other injury or even . In addition, there are risks associated with anesthesia given during this operation. Also, the patient was told that after undergoing a total knee replacement there may still be persistent pain or disability. The patient was informed that the success of this operation in part depends upon the mechanical devices which are going to be implanted and that these devices can fail or malfunction, and may need to be repaired or replaced and there are no guarantees as to the longevity of this device or its parts and that it or its parts could fail prematurely. The patient was also notified that during the course of surgery, there may be a need to use bone graft from donors, and that any bone graft used will be carefully screened for communicable diseases, including AIDS, hepatitis, Mendez-Creutzfeldt, or other diseases, but despite the screening procedures, there is a small chance that they could contract one of these diseases. Finally, the patient was asked to follow completely and fully with all advice and recommended treatments, and that recovery and ultimate outcome are affected by their compliance with recommended treatment. We discussed the risks, benefits and treatment alternatives, and the patient is interested in proceeding with surgery. We will try to set this up as expeditiously as possible. Office Procedures GNS Level of Care Nursing/Assessment Patient Status: Established Patient Nursing Assessment/Reassesment: Medication Reconciliation, Update PMH in EMR and Vital Signs Coordination of Care: Complex Care and Chronic Disease 1-5, Education Complex Pt/Fam, Consent,records obtained, informed consent, Results/Orders obtained and Staff clarify orders Special Needs: Language special needs Established Patient Charge Established Patient Point Assignment: 95 Established Patient Point Charge: Level 3 (80-115) MA Intake Visit Data Collection New Patient or Established: Established Patient (seen at [facility] within 3 years) Reason for Visit:: 6 WK POST OP RT TKA Seen by Clinical Staff ONLY (RN/MA): No Verbal consent obtained for Telemed visit?: No Public Health Educator Required: Yes PCP or OBGYN visit in last 3 months: Yes Hx Now: No Do You Feel Safe at Home: Yes Authorities Contacted: N/A Questionairres Past Medical History Past Medical History Have you ever been diagnosed with any of the following: Neurological Problems Seizures: No Cardiology Problems Congestive Heart Failure: No Hypertension: Yes Respiratory Problems Chronic Obstructive Pulmonary Disease (COPD): No Smoking: No Smoking Cessation Counseling: No Smoking Exposure: No Tobacco Use: No Stomache/Intestinal Problems Hepatitis: No Obesity: Yes Genital/Urinary Problems Renal Disease: No Musculoskeletal Problems Arthritis: Yes Endocrine Problems Diabetes Mellitus Type 1: No Diabetes Mellitus Type 2: Yes Other Problems Hospitalization: No Shingles: No Blood Transfusions: No Blood Transfusion Reaction: No Anesthesia Reactions: No Cancer: No Subjective Visit Visit for: follow up visit Immunization / Flu Flu Vaccine in the Last 12 Months: Yes Flu Vaccine Exclusion Criteria: Already Received History of Present Illness Chief complaint: Right total knee replacement Vance? is doing great status post right total knee replacement. He is using a cane. He reports the left knee is affecting his quality life and happiness. He is very happy with his right total knee replacement Pain Pain level (0-10): 0 Ambulatory data Ambulatory device: cane Treatments Improvement with previous injections: No Number of Physical Therapy sessions: 6 Improvement with PT: Yes Improvement with NSAIDS: n/a Review of Systems Review of Systems: All systems negative unless otherwise noted in HPI.
== END 2024-08-19 10:57 | disposition home or self-care (01) ==
LOC: HODSRG 10:24
PROVIDERS: PCP Physician Assistant; Referring Provider Physician Assistant; Supervising Provider Orthopaedic Surgery Adult Reconstructive Orthopaedic Surgery; Visit Provider Orthopaedic Surgery Adult Reconstructive Orthopaedic Surgery
DX: Z96.651 Presence of right artificial knee joint (principal); I10 Essential (primary) hypertension
CPT/HCPCS: 99213; G0463

== ENCOUNTER 2024-09-11 14:43 | Outpatient (AMB) | payer MEDICAID, SELFPAY ==
--- NOTE | 2024-09-11 14:56 | ORTHONT_ITS ---
Vital signs 09/11/24 14:59 Height 1.68 m Height Method Stated Weight 92.079 kg Weight Measurement Method Standing Scale BMI 32.6 BP 120/86 H Blood Pressure Source Automatic Cuff Blood Pressure Location Left Upper Arm Position Sitting Respiration 18 Pulse 89 Pulse Source Monitor Temp 98.1 F Temp Source Temporal Artery Scan Pulse Oximetry (%) 96 Oxygen Delivery Method Room Air Med/Allergies Allergies & Medications Allergies No Known Allergies Allergy (Verified 09/11/24 15:00) Medication Reconciliation losartan 50 mg tablet 50 mg PO QDAY 05/02/24 [History Confirmed 09/11/24] empagliflozin 10 mg tablet (Jardiance) 10 mg PO QAM 05/23/24 [History Confirmed 09/11/24] glipizide 2.5 mg tablet 2.5 mg PO QDAY 05/23/24 [History Confirmed 09/11/24] metformin 500 mg tablet 500 mg PO QDAY 05/23/24 [History Confirmed 09/11/24] semaglutide 0.25 mg or 0.5 mg (2 mg/3 mL) subcutaneous pen injector (Ozempic) 0.5 mg subcut QWEEK 07/08/24 [History Confirmed 09/11/24] acetaminophen 500 mg tablet (Acetaminophen Extra Strength) 1,000 mg (2 x 500 mg) PO Q6H PRN pain #90 tabs 07/09/24 [Rx Confirmed 09/11/24] aspirin 81 mg tablet,delayed release 81 mg PO BID #60 tabs 07/09/24 [Rx Confirmed 09/11/24] doxycycline hyclate 100 mg tablet 100 mg PO BID #14 tabs 07/09/24 [Rx Confirmed 09/11/24] gabapentin 300 mg capsule 300 mg PO .qhs #30 caps 07/09/24 [Rx Confirmed 09/11/24] oxycodone 5 mg tablet 5 mg PO Q6H PRN pain #28 tabs 07/09/24 [Rx Confirmed 09/11/24] sennosides 8.6 mg-docusate sodium 50 mg tablet (Senna-S) 1 tab-cap PO QDAY #30 tabs 07/09/24 [Rx Confirmed 09/11/24] Exam Exam Patient is in no acute distress and is cooperative with the examination today. Patient has a normal mood and affect. Breathing is nonlabored. In no respiratory distress. Bilateral extremities were evaluated and demonstrates sensation intact to light touch. Palpable pedal pulses are present. No significant edema is present. Right knee incisions clean dry intact. Range of motion is 0 to 110 degrees. Incision is completely healed and it looks fantastic Left knee is tender to palpation medially. ROM is 0-95 degrees. Knee feels stable to varus and valgus stress and AP translation Xrays demonstrate significant joint space narrowing with complete obliteration of the medial joint space and osteophytes. Assessment and Plan Problem List (1) History of total right knee replacement: Status: Acute Plan: Patient is a 58-year-old male status post right total knee replacement. HThe incision looks great and he is doing well. He reports the left knee is affecting his quality life and happiness. He has tried injections, anti- inflammatories and physical therapy. He would like the left knee replaced as he has tried several years of conservative treatment. The nature and purpose of the total knee replacement, alternative method(s) of treatment, the material risks involved, and the possibility of complications were fully explained to the patient. The patient does NOT have any of the following contraindications to TKA: - Active infection of the knee joint, OR - Active systemic bacteremia, OR - Active skin infection or open wound at surgical site, OR - Neuropathic arthritis, OR - Severe, rapidly progressive neurological disease, OR - Severe medical condition that makes risks of surgery outweigh the potential benefit The patient was told the most common risks and complications associated with a total knee replacement include, but are not limited to: blood clots in the leg, fatal pulmonary embolism, dislocation of the prosthesis, intraoperative and postoperative fractures of the femur or tibia, infection, failure of the prosthesis or grafting materials, complications from anesthesia, reactions to blood transfusions, postoperative leg length inequality, instability of the knee replacement, nerve damage or injury, vascular injury, delayed wound healing, infection, other injury or even . In addition, there are risks associated with anesthesia given during this operation. Also, the patient was told that after undergoing a total knee replacement there may still be persistent pain or disability. The patient was informed that the success of this operation in part depends upon the mechanical devices which are going to be implanted and that these devices can fail or malfunction, and may need to be repaired or replaced and there are no guarantees as to the longevity of this device or its parts and that it or its parts could fail prematurely. The patient was also notified that during the course of surgery, there may be a need to use bone graft from donors, and that any bone graft used will be carefully screened for communicable diseases, including AIDS, hepatitis, Mendez-Creutzfeldt, or other diseases, but despite the screening procedures, ther e is a small chance that they could contract one of these diseases. Finally, the patient was asked to follow completely and fully with all advice and recommended treatments, and that recovery and ultimate outcome are affected by their compliance with recommended treatment. We discussed the risks, benefits and treatment alternatives, and the patient is interested in proceeding with surgery. We will try to set this up as expeditiously as possible. (2) Osteoarthritis of left knee: Status: Acute Office Procedures GNS Level of Care Nursing/Assessment Patient Status: Established Patient Nursing Assessment/Reassesment: Medication Reconciliation, Update PMH in EMR and Vital Signs Coordination of Care: Complex Care and Chronic Disease 1-5, Education Complex Pt/Fam, Consent,records obtained, informed consent, Results/Orders obtained and Staff clarify orders Special Needs: Language special needs Established Patient Charge Established Patient Point Assignment: 95 Established Patient Point Charge: EP Level 3 (80-115) [place] Intake Visit Data Collection New Patient or Established: Established Patient (seen at [facility] within 3 years) Reason for Visit:: LEFT KNEE PAIN Pediatric Care Coordinator Required: Yes PCP or OBGYN visit in last 3 months: Yes Hx Now: No Do You Feel Safe at Home: Yes Authorities Contacted: N/A Questionairres Past Medical History Past Medical History Have you ever been diagnosed with any of the following: Neurological Problems Seizures: No Cardiology Problems Congestive Heart Failure: No Hypertension: Yes Respiratory Problems Chronic Obstructive Pulmonary Disease (COPD): No Smoking: No Smoking Cessation Counseling: No Smoking Exposure: No Tobacco Use: No Stomache/Intestinal Problems Hepatitis: No Obesity: Yes Genital/Urinary Problems Renal Disease: No Musculoskeletal Problems Arthritis: Yes Endocrine Problems Diabetes Mellitus Type 1: No Diabetes Mellitus Type 2: Yes Other Problems Hospitalization: No Shingles: No Blood Transfusions: No Blood Transfusion Reaction: No Anesthesia Reactions: No Cancer: No Subjective Visit Visit for: follow up visit and knee Immunization / Flu Flu Vaccine in the Last 12 Months: No Flu Vaccine Exclusion Criteria: No Exclusion Criteria and Already Received History of Present Illness Chief complaint: Right total knee replacement Vance? is doing great status post right total knee replacement. He is using a cane. He reports the left knee is affecting his quality life and happiness. The left knee pain has been ongoing for over 2 years. He is using a cane because of the left knee pain. He has tried several injections, 6 sessions of physical therapy, and home excercises for 2 weeks but had to stop because of pain. He has also tried ibuprofen, and tylenol. Pain Pain level (0-10): 8 Pain duration: ALL DAY Pain location: inside (medial) and anterior Pain quality: dull and aching Pain timing: night, increases with activity and stairs Associated signs & symptoms: weakness Ambulatory data Ambulatory device: cane Treatments Improvement with previous injections: No Number of Physical Therapy sessions: 6 Improvement with PT: No Improvement with NSAIDS: no Review of Systems Review of Systems: All systems negative unless otherwise noted in HPI.
[2024-09-11 14:59] VITALS: BP 120/86; PULSE 89; RESP 18; TEMP 36.7; O2SAT 96; BMI 32.6
== END 2024-09-11 15:05 | disposition home or self-care (01) ==
LOC: HODSRG 14:43
PROVIDERS: PCP Physician Assistant; Referring Provider Physician Assistant; Supervising Provider Orthopaedic Surgery Adult Reconstructive Orthopaedic Surgery; Visit Provider Orthopaedic Surgery Adult Reconstructive Orthopaedic Surgery
DX: Z96.651 Presence of right artificial knee joint (principal); M17.12 Unilateral primary osteoarthritis, left knee; I10 Essential (primary) hypertension; E11.9 Type 2 diabetes mellitus without complications; M25.562 Pain in left knee
CPT/HCPCS: 99213; G0463

== ENCOUNTER 2024-09-25 10:01 | Outpatient (AMB) | payer MEDICAID, SELFPAY ==
[2024-09-25 10:33] VITALS: BP 118/78; PULSE 79; RESP 18; TEMP 36.3; O2SAT 98; BMI 32.5
--- NOTE | 2024-09-25 10:33 | PD.ORTHCLVIS ---
Vital signs 09/25/24 10:33 Height 1.68 m Height Method Stated Weight 91.852 kg Weight Measurement Method Standing Scale BMI 32.5 BP 118/78 Blood Pressure Source Automatic Cuff Blood Pressure Location Left Upper Arm Position Sitting Respiration 18 Pulse 79 Pulse Source Monitor Temp 97.4 F Temp Source Temporal Artery Scan Pulse Oximetry (%) 98 Oxygen Delivery Method Room Air Med/Allergies Allergies & Medications Allergies No Known Allergies Allergy (Verified 09/25/24 10:34) Medication Reconciliation losartan 50 mg tablet 50 mg PO QDAY 05/02/24 [History Confirmed 09/25/24] empagliflozin 10 mg tablet (Jardiance) 10 mg PO QAM 05/23/24 [History Confirmed 09/25/24] glipizide 2.5 mg tablet 2.5 mg PO QDAY 05/23/24 [History Confirmed 09/25/24] metformin 500 mg tablet 500 mg PO QDAY 05/23/24 [History Confirmed 09/25/24] semaglutide 0.25 mg or 0.5 mg (2 mg/3 mL) subcutaneous pen injector (Ozempic) 0.5 mg subcut QWEEK 07/08/24 [History Confirmed 09/25/24] acetaminophen 500 mg tablet (Acetaminophen Extra Strength) 1,000 mg (2 x 500 mg) PO Q6H PRN pain #90 tabs 07/09/24 [Rx Confirmed 09/25/24] aspirin 81 mg tablet,delayed release 81 mg PO BID #60 tabs 07/09/24 [Rx Confirmed 09/25/24] doxycycline hyclate 100 mg tablet 100 mg PO BID #14 tabs 07/09/24 [Rx Confirmed 09/25/24] gabapentin 300 mg capsule 300 mg PO .qhs #30 caps 07/09/24 [Rx Confirmed 09/25/24] oxycodone 5 mg tablet 5 mg PO Q6H PRN pain #28 tabs 07/09/24 [Rx Confirmed 09/25/24] sennosides 8.6 mg-docusate sodium 50 mg tablet (Senna-S) 1 tab-cap PO QDAY #30 tabs 07/09/24 [Rx Confirmed 09/25/24] Exam Exam Patient is in no acute distress and is cooperative with the examination today. Patient has a normal mood and affect. Breathing is nonlabored. In no respiratory distress. Bilateral extremities were evaluated and demonstrates sensation intact to light touch. Palpable pedal pulses are present. No significant edema is present. Right knee incisions clean dry intact. Range of motion is 0 to 110 degrees. Incision is completely healed and it looks fantastic Left knee is tender to palpation medially. ROM is 0-95 degrees. Knee feels stable to varus and valgus stress and AP translation Xrays demonstrate significant joint space narrowing with complete obliteration of the medial joint space and osteophytes. Assessment and Plan Problem List (1) History of total right knee replacement: Status: Acute Plan: Patient is a 58-year-old male status post right total knee replacement. HThe incision looks great and he is doing well. He reports the left knee is affecting his quality life and happiness. He has tried injections, anti-inflammatories and physical therapy. He would like the left knee replaced as he has tried several years of conservative treatment. The nature and purpose of the total knee replacement, alternative method(s) of treatment, the material risks involved, and the possibility of complications were fully explained to the patient. The patient does NOT have any of the following contraindications to TKA: - Active infection of the knee joint, OR - Active systemic bacteremia, OR - Active skin infection or open wound at surgical site, OR - Neuropathic arthritis, OR - Severe, rapidly progressive neurological disease, OR - Severe medical condition that makes risks of surgery outweigh the potential benefit The patient was told the most common risks and complications associated with a total knee replacement include, but are not limited to: blood clots in the leg, fatal pulmonary embolism, dislocation of the prosthesis, intraoperative and postoperative fractures of the femur or tibia, infection, failure of the prosthesis or grafting materials, complications from anesthesia, reactions to blood transfusions, postoperative leg length inequality, instability of the knee replacement, nerve damage or injury, vascular injury, delayed wound healing, infection, other injury or even . In addition, there are risks associated with anesthesia given during this operation. Also, the patient was told that after undergoing a total knee replacement there may still be persistent pain or disability. The patient was informed that the success of this operation in part depends upon the mechanical devices which are going to be implanted and that these devices can fail or malfunction, and may need to be repaired or replaced and there are no guarantees as to the longevity of this device or its parts and that it or its parts could fail prematurely. The patient was also notified that during the course of surgery, there may be a need to use bone graft from donors, and that any bone graft used will be carefully screened for communicable diseases, including AIDS, hepatitis, Mendez-Creutzfeldt, or other diseases, but despite the screening procedures, there is a small chance that they could contract one of these diseases. Finally, the patient was asked to follow completely and fully with all advice and recommended treatments, and that recovery and ultimate outcome are affected by their compliance with recommended treatment. We discussed the risks, benefits and treatment alternatives, and the patient is interested in proceeding with surgery. We will try to set this up as expeditiously as possible. (2) Osteoarthritis of left knee: Status: Acute Office Procedures GNS Level of Care Nursing/Assessment Patient Status: Established Patient Nursing Assessment/Reassesment: Medication Reconciliation, Update PMH in EMR and Vital Signs Coordination of Care: Complex Care and Chronic Disease 1-5, Education Complex Pt/Fam, Consent,records obtained, informed consent, Results/Orders obtained and Staff clarify orders Special Needs: Language special needs Established Patient Charge Established Patient Point Assignment: 95 Established Patient Point Charge: EP Level 3 (80-115) MA Intake Visit Data Collection New Patient or Established: Established Patient (seen at [facility] within 3 years) Reason for Visit:: FOLLOW UP KNEE Seen by Clinical Staff ONLY (RN/MA): No Critical Care Unit Manager Required: Yes PCP or OBGYN visit in last 3 months: Yes Hx Now: No Do You Feel Safe at Home: Yes Authorities Contacted: N/A Questionairres Past Medical History Past Medical History Have you ever been diagnosed with any of the following: Neurological Problems Seizures: No Cardiology Problems Congestive Heart Failure: No Hypertension: Yes Respiratory Problems Chronic Obstructive Pulmonary Disease (COPD): No Smoking: No Smoking Cessation Counseling: No Smoking Exposure: No Tobacco Use: No Stomache/Intestinal Problems Hepatitis: No Obesity: Yes Genital/Urinary Problems Renal Disease: No Musculoskeletal Problems Arthritis: Yes Endocrine Problems Diabetes Mellitus Type 1: No Diabetes Mellitus Type 2: Yes Other Problems Hospitalization: No Shingles: No Blood Transfusions: No Blood Transfusion Reaction: No Anesthesia Reactions: No Cancer: No Subjective Visit Visit for: follow up visit and knee Immunization / Flu Flu Vaccine in the Last 12 Months: No Flu Vaccine Exclusion Criteria: No Exclusion Criteria History of Present Illness Chief complaint: Right total knee replacement Vance? is doing great status post right total knee replacement. He is using a cane. He reports the left knee is affecting his quality life and happiness. The left knee pain has been ongoing for over 2 years. He is using a cane because of the left knee pain. He has tried several injections, 6 sessions of physical therapy, and home excercises for 2 weeks but had to stop because of pain. He has also tried ibuprofen, and tylenol. Pain Pain level (0-10): 0 Pain duration: ALL DAY Pain location: inside (medial) and anterior Pain quality: dull and aching Pain timing: night, increases with activity and stairs Associated signs & symptoms: weakness Ambulatory data Ambulatory device: cane Treatments Improvement with previous injections: No Number of Physical Therapy sessions: 6 Improvement with PT: No Improvement with NSAIDS: no Review of Systems Review of Systems: All systems negative unless otherwise noted in HPI.
== END 2024-09-25 11:18 | disposition home or self-care (01) ==
PROVIDERS: PCP Physician Assistant; Referring Provider Physician Assistant; Supervising Provider Orthopaedic Surgery Adult Reconstructive Orthopaedic Surgery; Visit Provider Orthopaedic Surgery Adult Reconstructive Orthopaedic Surgery
DX: Z96.651 Presence of right artificial knee joint (principal); M17.12 Unilateral primary osteoarthritis, left knee; I10 Essential (primary) hypertension; E11.9 Type 2 diabetes mellitus without complications
CPT/HCPCS: 99213; G0463

== ENCOUNTER → 2024-09-25 | Outpatient (CLI) | payer MEDICAID, SELFPAY ==
--- NOTE | 2024-09-25 11:26 | XR_ITS ---
Examination: CT left lower extremity, without contrast. 2-D sagittal reconstructions. 2-D coronal reconstructions. 3-D reconstructions. Date and time of exam:September 25, 2024 1206 hours INDICATIONS: Diagnosis unilateral left knee osteoarthritis left knee pain several years CTDI: vol (mGy):10.2 DLP: (mGycm):789 Technique: Multiple 1.25 mm axial sections of the left lower extremity without intravenous contrast have been obtained. 2-D sagittal and coronal reconstructions have been obtained. 3-D reconstructions have been obtained. Low dose protocols were performed. One or more of the following dose reduction techniques were used; automated exposure control, adjustment of the mA and/or KV according to patient size, use of iterative reconstruction technique. Findings: Moderate osteopenia Moderate narrowing left hip joint No left hip fracture or dislocation Severe narrowing, [id number] medial joint space left knee Moderate osteoarthritis lateral patellofemoral joints No fractures IMPRESSION: Severe narrowing, [id number], medial joint space left knee
== END | disposition home or self-care (01) ==
PROVIDERS: PCP Physician Assistant; Referring Provider Orthopaedic Surgery Adult Reconstructive Orthopaedic Surgery; Visit Provider Orthopaedic Surgery Adult Reconstructive Orthopaedic Surgery
DX: M17.12 Unilateral primary osteoarthritis, left knee (principal); M25.862 Other specified joint disorders, left knee
CPT/HCPCS: 73700

== ENCOUNTER 2024-10-13 09:10 | Day surgery (SDC) | payer MEDICAID, SELFPAY ==
[2024-10-10 09:46] VITALS: BMI 33.7
--- NOTE | 2024-10-10 09:55 | EKG_ITS ---
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
[2024-10-10 10:53] LABS: Basophils # (Auto) 0.1 Thou/mm3 (0.0-0.2); Basophils % (Auto) 1 % (0-2.5); Eosinophils % (Auto) 0 % (0-10); Hematocrit 47.3 % (41.0-53.0); Hemoglobin 15.2 g/dL (13.5-16.0); Immature Granulocytes % (Auto) 3 % (0-0); Immature Granulocytes Auto 0.32 Thou/mm3 (0.00-0.00); Lymphocytes # (Auto) 2.1 Thou/mm3 (1.0-4.8); Lymphocytes % (Auto) 20 % (10-50); Mean Corpuscular HGB Conc 32.1 g/dl (31.0-37.0); Mean Corpuscular Hemoglobin 30.1 pg (25.0-35.0); Mean Corpuscular Volume 94 fL (80-100); Monocytes # (Auto) 0.8 Thou/mm3 (0.0-0.8); Monocytes % (Auto) 8 % (0-12); Neutrophils # (Auto) 7.1 Thou/mm3 (1.8-7.7); Neutrophils % (Auto) 68 % (37-80); Nucleated Red Blood Cell % 0 /100 WBC (0); Platelet Count 259 Thou/mm3 (140-440); RDW Standard Deviation 49.1 fL (35.1-43.9); Red Blood Count 5.05 Miln/mm3 (4.50-5.90); White Blood Count 10.4 Thou/mm3 (3.8-10.6)
[2024-10-10 11:07] LABS: Alanine Aminotransferase 48 U/L (10-49); Albumin, Serum 4.4 gm/dL (3.5-5.0); Albumin/Globulin Ratio 1.7 (1.2-2.2); Alkaline Phosphatase 153 U/L (46-116); Anion Gap 9 (7-16); Aspartate Amino Transferase 19 U/L (0-34); BUN/Creatinine Ratio 26 Ratio (12-20); Bilirubin,Total 0.5 mg/dL (0.3-1.2); Blood Urea Nitrogen 18 mg/dL (9-23); Calcium 9.1 mg/dL (8.3-10.6); Calcium (Corrected) 9.1 mg/dL (8.5-10.1); Carbon Dioxide 27.1 mMol/L (20.0-31.0); Chloride 109 mMol/L (98-107); Creatinine (Component) 0.7 mg/dL (0.6-1.3); Globulin 2.6 gm/dL (2.3-3.5); Glucose 90 mg/dL (74-106); Osmolality,Calculated 290 (275-295); Potassium 4.4 mMol/L (3.4-5.1); Sodium 145 mMol/L (136-145); eGFR > 60 See Note
[2024-10-10 11:13] LABS: INR 0.9 (0.9-1.3); Prothrombin Time 9.8 Seconds (9.0-12.2)
[2024-10-13] VITALS (15 sets, daily range): BP systolic 103–136; BP diastolic 69–99; PULSE 79–98; RESP 12–91; TEMP 36.1–36.7; O2SAT 95–99; BMI 33.3
--- NOTE | 2024-10-13 10:20 | SUR.PREOP ---
Made Zhang INCOME TAX PREPARER aware pt.'s blood glucose is 64. Zhang ordered D5W at 125ml/hr and re-check blood glucose in 15 minutes. Will endorse. Pt. is stable, VSS, no c/o fatigue or weakness at this time.
--- NOTE | 2024-10-13 10:34 | SUR.PREOP ---
Patient expressed gratitude for prayer before their procedure.
[2024-10-13] MEDS: DEXTROSE 5%-WATER 500 ML 125 ML IV (10:40)
[2024-10-13] MEDS: MELOXICAM 7.5 MG TABLET PO (12:13)
[2024-10-13] MEDS: PREGABALIN 75 MG CAPSULE PO (12:13)
[2024-10-13] MEDS: ACETAMINOPHEN 325 MG TABLET 650 MG PO (12:13)
[2024-10-13] MEDS: RINGERS LACTATED 1000 ML 1,000 ML 20 ML IV (12:15)
--- NOTE | 2024-10-13 14:18 | PD.SUROPNT ---
Date of Procedure 10/13/24 Pre Op Diagnosis left knee osteoarthritis Post Op Diagnosis left knee osteoarthritis Procedure left total knee replacement obi Findings full thickness cartilage loss and osteophytes Procedure Description Indication: The patient is a 58 year old who has a long history of left knee pain. X-rays show degenerative arthritis involving the knee. Over the past several years the patient has had increasing pain, progressive limitation in function. He has failed conservative measures including activity modification, physical therapy, injections, anti-inflammatories, and assistive devices. After a lengthy discussion of the risks and benefits, the patient presents now for total knee replacement. The nature and purpose of the total knee replacement, alternative method(s) of treatment, the material risks involved, and the possibility of complications were fully explained to the patient. The patient was told the most common risks and complications associated with a total knee replacement include, but are not limited to blood clots in the leg, fatal pulmonary embolism, dislocation of the prosthesis, intraoperative and postoperative fractures of the femur or tibia, infection, failure of the prosthesis or grafting materials, complications from anesthesia, reactions to blood transfusions, postoperative leg length inequality, instability of the knee replacement, nerve damage or injury, vascular injury, delayed wound healing, infections, other injury or even . In addition, there are risks associated with anesthesia given during this operation, temporary or permanent numbness on the skin lateral to the incision can be a complication unique to total knee surgery, and kneeling can be painful after knee replacement surgery. Also, the patient was told that after undergoing a total knee replacement there may still be pain or disability. We discussed with the patient that we will be using a robot-assisted technology. We discussed that there is a possibility of converting to manual instrumentation. The patient was informed that the success of this operation in part depends upon the mechanical devices which are going to be implanted and that these devices can fail or malfunction, and may need to be repaired or replaced and there are no guarantees as to the longevity of this device or its part and that it or its parts could fail prematurely. Finally, the patient was asked to follow completely and fully with all advice and recommended treatments, and that recovery and ultimate outcome are affected by their compliance with recommended treatment. Surgical technique: Patient was marked and consented in the pre-operative area. The patient was brought to the operating room and placed on the operating table in a supine position. Prior to positioning, a timeout procedure was performed between the surgeon, the anesthesiologist, and the nursing staff where the patient and the operative side were identified and confirmed. After adequate general anesthetic was obtained, the left lower extremity was prepped and draped in the usual sterile fashion. A weight based dose of Cefazolin were administered within 1 hour prior to incision. The robot was preregistered and calirated before the incision. The extremity was exsanguinated with an esmarch badge and tourniquet inflated to 250mmHg. A midline incision was made. A median parapatellar arthrotomy was made. The patella was subluxed laterally. A medial release was performed to expose the medial tibia. His femoral and tibial pins were placed through an intra incisional manner for both cases. Every effort was made to ensure that the distalmost aspect of the pin was hung in the second cortex. The arrays were then tightened several times to ensure that it was fixed for the remainder of the case. Both femoral and tibial checkpoints were then placed. We then went through the registration process of the bone. We then assessed the knee deformity and attempted to correct it. We also used the robot to aid in judging laxity in both extension and flexion. Final based on laxity and alignment we changed the preoperative assessment to obtain proper proper implant positioning and to correct deformity. Attention was then placed to the tibia. We made a tibial cut using the robot ensuring that both the MCL and the patella tendon were protected with retractors. We then went to the femur and made the posterior cut followed by the anterior cut and the anterior chamfer. The bone was then removed and we made a distal femur cut and a posterior chamfer cut. We verified all cuts. A trial reduction was performed with a size femoral component and a size 3 keeled tibial component. The patella tracked centrally, and no lateral retinacular release was necessary. The trial implants were removed. The arrays, pins, and checkpoints were all removed. We performed a verification that all pins were removed. The cut bone surfaces were lavaged. A size 3 left femoral component, a size 3 keeled tibial component were impacted into position. The knee was felt to be well balanced in the sagittal and coronal plane. The final 3x10 mm cruciate-substituting articular insert was impacted into the tibial tray. The knee was brought out to full extension, flexed up to 120 degrees. It was stable to varus and valgus stress and appropriately balanced in flexion and extension. The wounds were copiously irrigated following deflation of tourniquet. The medial retinaculum was reapproximated with #1 vicryl and quill. The subcutaneous tissues were closed with 0 and 2-0 interrupted Vicryl. The skin was closed with 3-0 Monofilament V loc suture. A sterile dressing was applied. The patient was transferred to a bed and brought to recovery in stable condition. The patient tolerated the procedure well. There were no intraoperative complications. Sponge and needle counts were correct times 2. As the attending surgeon, Colt john I was present and performed the entire operation. Grafts/Implants Size 3 CR Femur Size 3 Tibia 10mm poly CS Anesthesia spinal Implants eric Pathology / specimen None Pathology comment: none Estimated Blood Loss 150 Condition Stable Disposition same day Surgeon Geoffrey Birch MD Surgical Staff Operation Date: 10/13/24 14:45 Case Staff SYSTEMS TECHNOLOGIST: Suresh Fuentes RNpackager hand: Ruth Ann Carter
--- NOTE | 2024-10-13 14:25 | XR_ITS ---
Examination: Intravenous FINDINGS: AP lateral and decubitus Date and time: 02/13/2025 1653 hours INDICATIONS: Postop knee replacement. FINDINGS: Significant osteopenia. Total left knee arthroplasty. Satisfactory alignment. No fracture IMPRESSION: Total left knee arthroplasty with satisfactory alignment
--- NOTE | 2024-10-13 14:31 | SUR.OPER ---
skin tear on left knee, present prior to surgery.
--- NOTE | 2024-10-13 14:50 | SUR.PHASEI ---
1450 Patient arrived to recovery resting comfortably in [facility], drowsy on oxygen 4L via nasal cannula, breathing unlabored, vital signs stable, denies pain, dressing intact to left lower left; pringrabielo, nikky, abd, webril, bev wraps, no bleeding noted, denies pain, post spinal anesthesia assessment, patient has dermatome sensation at S2-perineum, denies nausea, report received from Dahlia ELISE and David SOUZA/Zhang CLEARY
--- NOTE | 2024-10-13 16:33 | SUR.PHASEII ---
assumed care over pt at this time. pt awake and alert, breathing unlabored on room air. v/s stable. pt dressing to left lower extremity cdi. report received from Adele Kapoor RN.
--- NOTE | 2024-10-13 16:33 | SUR.PHASEII ---
1633 Report given to Ramon ELISE, patient awake and sitting up in bed eating meal, tolerating well, breathing unlabored, vital signs stable, denies pain, dressing intact; no bleeding noted, patient family as beside, and going over discharge instructions.
--- NOTE | 2024-10-13 17:00 | SUR.PHASEII ---
pt c/o bladder pain, bladder scan performed 921ml seen on examination. Will inform Dr. Birch.
--- NOTE | 2024-10-13 17:08 | SUR.PHASEII ---
Dr. Birch informed of pts bladder scan, new orders received.
--- NOTE | 2024-10-13 17:25 | SUR.PHASEII ---
prior to performing in and out catheter pt able to urinate 400ml.
--- NOTE | 2024-10-13 18:32 | SUR.PHASEII ---
pt awake and alert, breathing unlabored on room air. v/s stable. pt dressing to left lower extremity cdi. pt cleared by physical therapist Vonnie. pt able to ambulate with walker with steady gait. d/c instructions given with and son using telephone police dispatcher, all questions answered. pt d/c via wheelchair with all belongings.
== END 2024-10-13 18:32 | disposition home or self-care (01) ==
PROVIDERS: Anesthesiology; PCP Physician Assistant; Referring Provider Orthopaedic Surgery Adult Reconstructive Orthopaedic Surgery; Visit Provider Orthopaedic Surgery Adult Reconstructive Orthopaedic Surgery
PROC: (CPT 27447; principal; 2024-10-13 14:30)
DX: M17.12 Unilateral primary osteoarthritis, left knee (principal); Z01.810 Encounter for preprocedural cardiovascular examination
CPT/HCPCS: 27447; 20985; 36415; 73560; 80053; 85025; 85610; 85730; 93005; A4217; C1713; C1776; J1100; J2250; J2371; J2704; J2795; J3010; J3490; J7030; J7060; J7120; J7999; A4648; A4649; A9270

== ENCOUNTER 2024-10-28 09:47 | Outpatient (AMB) | payer MEDICAID, SELFPAY ==
[2024-10-28 10:22] VITALS: BP 157/103; PULSE 8; RESP 19; TEMP 36.6; O2SAT 96; BMI 32.1
--- NOTE | 2024-10-28 10:22 | ORTHONT_ITS ---
Vital signs 10/28/24 10:22 Height 1.68 m Height Method Stated Weight 90.775 kg Weight Measurement Method Standing Scale BMI 32.1 BP 157/103 H Blood Pressure Source Automatic Cuff Blood Pressure Location Left Upper Arm Position Sitting Respiration 19 Pulse 8 L Pulse Source Monitor Temp 97.8 F Temp Source Temporal Artery Scan Pulse Oximetry (%) 96 Oxygen Delivery Method Room Air Med/Allergies Allergies & Medications Allergies No Known Allergies Allergy (Verified 10/28/24 10:23) Medication Reconciliation losartan 50 mg tablet 50 mg PO QDAY 05/02/24 [History Confirmed 10/28/24] empagliflozin 10 mg tablet (Jardiance) 10 mg PO QAM 05/23/24 [History Confirmed 10/28/24] glipizide 2.5 mg tablet 2.5 mg PO QDAY 05/23/24 [History Confirmed 10/28/24] metformin 500 mg tablet 500 mg PO QDAY 05/23/24 [History Confirmed 10/28/24] semaglutide 0.25 mg or 0.5 mg (2 mg/3 mL) subcutaneous pen injector (Ozempic) 0.5 mg subcut QWEEK 07/08/24 [History Confirmed 10/28/24] acetaminophen 500 mg tablet (Acetaminophen Extra Strength) 1,000 mg (2 x 500 mg) PO Q6H PRN pain #90 tabs 10/13/24 [Rx Confirmed 10/28/24] aspirin 81 mg tablet,delayed release 81 mg PO BID #60 tabs 10/13/24 [Rx Confirmed 10/28/24] doxycycline hyclate 100 mg tablet 100 mg PO BID #14 tabs 10/13/24 [Rx Confirmed 10/28/24] gabapentin 300 mg capsule 300 mg PO .qhs #30 caps 10/13/24 [Rx Confirmed 10/28/24] oxycodone 5 mg tablet 5 mg PO Q6H PRN pain #28 tabs 10/13/24 [Rx Confirmed 10/28/24] sennosides 8.6 mg-docusate sodium 50 mg tablet (Senna-S) 1 tab-cap PO QDAY #30 tabs 10/13/24 [Rx Confirmed 10/28/24] hydrocodone 7.5 mg-acetaminophen 325 mg tablet 1 tab PO Q6H PRN pain #28 tabs 10/28/24 [Rx] pregabalin 75 mg capsule 75 mg PO BID #60 caps 10/28/24 [Rx] Exam Exam Patient is in no acute distress and is cooperative with the examination today. Patient has a normal mood and affect. Breathing is nonlabored. In no respiratory distress. Bilateral extremities were evaluated and demonstrates sensation intact to light touch. Palpable pedal pulses are present. No significant edema is present. Right knee incisions clean dry intact. Range of motion is 0 to 110 degrees. Incision is completely healed and it looks fantastic Left knee incisions clean dry intact. Range of motion 0 to 100 degrees Assessment and Plan Problem List (1) History of total right knee replacement: Status: Acute Plan: Patient is a 58-year-old male status post Left total knee replacement. He is doing well. Is working with outpatient physical therapy. We Will see him in approximately 2 months for routine follow-up with new x-rays (2) Osteoarthritis of left knee: Status: Acute Office Procedures GNS Level of Care Nursing/Assessment Patient Status: Established Patient Nursing Assessment/Reassesment: Medication Reconciliation, Update PMH in EMR and Vital Signs Coordination of Care: Complex Care and Chronic Disease 1-5, Education Complex Pt/Fam, Consent,records obtained, informed consent, Results/Orders obtained and Staff clarify orders Special Needs: Language special needs Established Patient Charge Established Patient Point Assignment: 95 Established Patient Point Charge: EP Level 3 (80-115) MA Intake Visit Data Collection New Patient or Established: Established Patient (seen at [facility] within 3 years) Reason for Visit:: 2 WEEK POST OP L TKA Seen by Clinical Staff ONLY (RN/MA): No Services Mgr Required: Yes PCP or OBGYN visit in last 3 months: Yes Hx Now: No Do You Feel Safe at Home: Yes Authorities Contacted: N/A Questionairres Past Medical History Past Medical History Have you ever been diagnosed with any of the following: Neurological Problems Seizures: No Cardiology Problems Congestive Heart Failure: No Hypertension: Yes Respiratory Problems Chronic Obstructive Pulmonary Disease (COPD): No Smoking: No Smoking Cessation Counseling: No Smoking Exposure: No Tobacco Use: No Stomache/Intestinal Problems Hepatitis: No Obesity: Yes Genital/Urinary Problems Renal Disease: No Musculoskeletal Problems Arthritis: Yes Endocrine Problems Diabetes Mellitus Type 1: No Diabetes Mellitus Type 2: Yes Other Problems Hospitalization: No Shingles: No Blood Transfusions: No Blood Transfusion Reaction: No Anesthesia Reactions: No Cancer: No Subjective Visit Visit for: follow up visit and knee (LEFT) Immunization / Flu Flu Vaccine in the Last 12 Months: No Flu Vaccine Exclusion Criteria: No Exclusion Criteria History of Present Illness Chief complaint: Left knee replacement Patient is 2 weeks status post left total knee replacement . he is doing well. Pain Pain level (0-10): 6 Pain duration: ALL NIGHT Pain location: outside (lateral) Pain quality: dull and aching Pain timing: night and increases with activity Associated signs & symptoms: none Ambulatory data Ambulatory device: walker Treatments Improvement with previous injections: No Improvement with PT: No Improvement with NSAIDS: no Review of Systems Review of Systems: All systems negative unless otherwise noted in HPI.
== END 2024-10-28 10:33 | disposition home or self-care (01) ==
PROVIDERS: PCP Physician Assistant; Referring Provider Physician Assistant; Supervising Provider Orthopaedic Surgery Adult Reconstructive Orthopaedic Surgery; Visit Provider Orthopaedic Surgery Adult Reconstructive Orthopaedic Surgery
DX: Z96.652 Presence of left artificial knee joint (principal); M17.12 Unilateral primary osteoarthritis, left knee; I10 Essential (primary) hypertension; E11.9 Type 2 diabetes mellitus without complications
CPT/HCPCS: 99213; G0463

== ENCOUNTER 2024-11-18 10:34 | Outpatient (AMB) | payer MEDICAID, SELFPAY ==
[2024-11-18 11:07] VITALS: BP 133/89; PULSE 80; RESP 17; TEMP 36.9; O2SAT 98; BMI 31.5
--- NOTE | 2024-11-18 11:07 | ORTHONT_ITS ---
Vital signs 11/18/24 11:07 Height 1.68 m Height Method Stated Weight 88.904 kg Weight Measurement Method Standing Scale BMI 31.5 BP 133/89 H Blood Pressure Source Automatic Cuff Blood Pressure Location Left Upper Arm Position Sitting Respiration 17 Pulse 80 Pulse Source Monitor Temp 98.4 F Temp Source Temporal Artery Scan Pulse Oximetry (%) 98 Oxygen Delivery Method Room Air Med/Allergies Allergies & Medications Allergies No Known Allergies Allergy (Verified 11/18/24 11:08) Medication Reconciliation losartan 50 mg tablet 50 mg PO QDAY 05/02/24 [History Confirmed 11/18/24] empagliflozin 10 mg tablet (Jardiance) 10 mg PO QAM 05/23/24 [History Confirmed 11/18/24] glipizide 2.5 mg tablet 2.5 mg PO QDAY 05/23/24 [History Confirmed 11/18/24] metformin 500 mg tablet 500 mg PO QDAY 05/23/24 [History Confirmed 11/18/24] semaglutide 0.25 mg or 0.5 mg (2 mg/3 mL) subcutaneous pen injector (Ozempic) 0.5 mg subcut QWEEK 07/08/24 [History Confirmed 11/18/24] acetaminophen 500 mg tablet (Acetaminophen Extra Strength) 1,000 mg (2 x 500 mg) PO Q6H PRN pain #90 tabs 10/13/24 [Rx Confirmed 11/18/24] aspirin 81 mg tablet,delayed release 81 mg PO BID #60 tabs 10/13/24 [Rx Confirmed 11/18/24] doxycycline hyclate 100 mg tablet 100 mg PO BID #14 tabs 10/13/24 [Rx Confirmed 11/18/24] gabapentin 300 mg capsule 300 mg PO .qhs #30 caps 10/13/24 [Rx Confirmed 11/18/24] oxycodone 5 mg tablet 5 mg PO Q6H PRN pain #28 tabs 10/13/24 [Rx Confirmed 11/18/24] sennosides 8.6 mg-docusate sodium 50 mg tablet (Senna-S) 1 tab-cap PO QDAY #30 tabs 10/13/24 [Rx Confirmed 11/18/24] hydrocodone 7.5 mg-acetaminophen 325 mg tablet 1 tab PO Q6H PRN pain #28 tabs 10/28/24 [Rx Confirmed 11/18/24] pregabalin 75 mg capsule 75 mg PO BID #60 caps 10/28/24 [Rx Confirmed 11/18/24] cyclobenzaprine 5 mg tablet 5 mg PO TID PRN muscle spasm #30 tabs 11/18/24 [Rx] Exam Exam Patient is in no acute distress and is cooperative with the examination today. Patient has a normal mood and affect. Breathing is nonlabored. In no respiratory distress. Bilateral extremities were evaluated and demonstrates sensation intact to light touch. Palpable pedal pulses are present. No significant edema is present. Right knee incisions clean dry intact. Range of motion is 0 to 110 degrees. Incision is completely healed and it looks fantastic Left knee incisions clean dry intact. Range of motion 0 to 100 degrees X-rays demonstrate cementless total knee replacement in good alignment position. Assessment and Plan Problem List (1) History of total right knee replacement: Status: Acute Plan: Patient is a 58-year-old male status post Left total knee replacement. He is doing well. We will see him back for routine follow-up in 3 months. He is very happy (2) Osteoarthritis of left knee: Status: Acute Office Procedures GNS Level of Care Nursing/Assessment Patient Status: Established Patient Nursing Assessment/Reassesment: Medication Reconciliation, Update PMH in EMR and Vital Signs Coordination of Care: Complex Care and Chronic Disease 1-5, Education Complex Pt/Fam, Consent,records obtained, informed consent, Results/Orders obtained and Staff clarify orders Special Needs: Language special needs (HONG K[place]ER ) Established Patient Charge Established Patient Point Assignment: 95 Established Patient Point Charge: EP Level 3 (80-115) MA Intake Visit Data Collection New Patient or Established: Established Patient (seen at [facility] within 3 years) Reason for Visit:: 4 WEEK XRAY RESULT/LT TKA 10/13/24 Seen by Clinical Staff ONLY (RN/MA): No 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 PCP or OBGYN visit in last 3 months: Yes Hx Now: No Do You Feel Safe at Home: Yes Authorities Contacted: N/A Questionairres Past Medical History Past Medical History Have you ever been diagnosed with any of the following: Neurological Problems Seizures: No Cardiology Problems Congestive Heart Failure: No Hypertension: Yes Respiratory Problems Chronic Obstructive Pulmonary Disease (COPD): No Smoking: No Smoking Cessation Counseling: No Smoking Exposure: No Tobacco Use: No Stomache/Intestinal Problems Hepatitis: No Obesity: Yes Genital/Urinary Problems Renal Disease: No Musculoskeletal Problems Arthritis: Yes Endocrine Problems Diabetes Mellitus Type 1: No Diabetes Mellitus Type 2: Yes Other Problems Hospitalization: No Shingles: No Blood Transfusions: No Blood Transfusion Reaction: No Anesthesia Reactions: No Cancer: No Subjective Visit Visit for: follow up visit and post op #2 (POST OP LT TKA ) Immunization / Flu Flu Vaccine in the Last 12 Months: Yes Flu Vaccine Exclusion Criteria: Already Received History of Present Illness Chief complaint: Left knee replacement Patient is 6 weeks status post left total knee replacement . he is doing well. Personal History Red flag PMH: none Pain Pain level (0-10): 10 Pain duration: 09/2024 Pain location: anterior Pain quality: sharp, burning, tingling and other (specify) (SWELLING) Pain timing: night and increases with activity Associated signs & symptoms: weakness Ambulatory data Ambulatory device: cane Walking distance (minutes): 1 Treatments Number of previous injections: 0 Improvement with previous injections: No Number of Physical Therapy sessions: 8 Improvement with PT: Yes Improvement with NSAIDS: n/a Review of Systems Review of Systems: All systems negative unless otherwise noted in HPI.
== END 2024-11-18 11:23 | disposition home or self-care (01) ==
PROVIDERS: PCP Physician Assistant; Referring Provider Physician Assistant; Supervising Provider Orthopaedic Surgery Adult Reconstructive Orthopaedic Surgery; Visit Provider Orthopaedic Surgery Adult Reconstructive Orthopaedic Surgery
DX: Z96.651 Presence of right artificial knee joint (principal); M17.12 Unilateral primary osteoarthritis, left knee; I10 Essential (primary) hypertension; E11.9 Type 2 diabetes mellitus without complications
CPT/HCPCS: 99213; G0463

== ENCOUNTER → 2024-11-18 | Outpatient (CLI) | payer MEDICAID, SELFPAY ==
--- NOTE | 2024-11-18 09:36 | XR_ITS ---
Examination: Bilateral knees 2 views Right lateral knee left lateral knee 2 views Bilateral axial knees single view TECHNIQUE: Bilateral AP knees standing single view Bilateral PA knees standing single view flexion Standing right lateral knee left lateral knee 2 views Bilateral axial knees single view Date and time: November 18, 2024 0953 hours INDICATIONS: Right knee replacement June 2024 left knee replacement September 2024 persistent knee pain FINDINGS: Moderate osteopenia Bilateral total knee arthroplasties. Satisfactory alignment bilaterally No fractures No loosening of the prosthetic components. No patellar dislocation IMPRESSION: Bilateral total knee arthroplasties with satisfactory alignment
== END | disposition home or self-care (01) ==
LOC: CDIM 09:18
PROVIDERS: PCP Physician Assistant; Referring Provider Orthopaedic Surgery Adult Reconstructive Orthopaedic Surgery; Visit Provider Orthopaedic Surgery Adult Reconstructive Orthopaedic Surgery
DX: M18.0 Bilateral primary osteoarthritis of first carpometacarpal joints (principal); M17.0 Bilateral primary osteoarthritis of knee; Z96.653 Presence of artificial knee joint, bilateral
CPT/HCPCS: 73564

== ENCOUNTER → 2024-12-19 | Outpatient (CLI) | payer MEDICAID, SELFPAY ==
--- NOTE | 2024-12-19 14:38 | XR_ITS ---
Examination: Bilateral knees 2 views Right lateral knee left lateral knee 2 views Bilateral axial knees single view TECHNIQUE: Bilateral AP knees standing single view, bilateral PA knees standing single view flexion Standing right lateral knee left lateral knee 2 views Bilateral axial knees single view total 5 views Date and time: December 19, 2024 1511 hours INDICATIONS: Knee replacements on the right June 2024 on the left September 2024, patient fell 2 days ago with injury to the knees, knee pain FINDINGS: Bilateral total knee arthroplasties. Satisfactory alignment. No fractures. No loosening of the prosthetic components IMPRESSION: Bilateral total knee arthroplasties with satisfactory alignment
== END | disposition home or self-care (01) ==
PROVIDERS: PCP Physician Assistant; Referring Provider Orthopaedic Surgery Adult Reconstructive Orthopaedic Surgery; Visit Provider Orthopaedic Surgery Adult Reconstructive Orthopaedic Surgery
DX: S89.92XA Unspecified injury of left lower leg, initial encounter (principal); S89.91XA Unspecified injury of right lower leg, initial encounter; W19.XXXA Unspecified fall, initial encounter; Z96.652 Presence of left artificial knee joint; Z96.651 Presence of right artificial knee joint
CPT/HCPCS: 73564

== ENCOUNTER 2024-12-25 12:50 | Outpatient (AMB) | payer MEDICAID, SELFPAY ==
--- NOTE | 2024-12-25 13:09 | PD.ORTHCLVIS ---
Vital signs 12/25/24 13:10 Height 1.68 m Height Method Stated Weight 90.52 kg Weight Measurement Method Standing Scale BMI 32.1 BP 133/87 H Blood Pressure Source Automatic Cuff Blood Pressure Location Left Upper Arm Position Sitting Respiration 18 Pulse 80 Pulse Source Monitor Temp 97.1 F Temp Source Temporal Artery Scan Pulse Oximetry (%) 98 Oxygen Delivery Method Room Air Med/Allergies Allergies & Medications Allergies No Known Allergies Allergy (Verified 12/25/24 13:11) Medication Reconciliation losartan 50 mg tablet 50 mg PO QDAY 05/02/24 [History Confirmed 12/25/24] empagliflozin 10 mg tablet (Jardiance) 10 mg PO QAM 05/23/24 [History Confirmed 12/25/24] glipizide 2.5 mg tablet 2.5 mg PO QDAY 05/23/24 [History Confirmed 12/25/24] metformin 500 mg tablet 500 mg PO QDAY 05/23/24 [History Confirmed 12/25/24] semaglutide 0.25 mg or 0.5 mg (2 mg/3 mL) subcutaneous pen injector (Ozempic) 0.5 mg subcut QWEEK 07/08/24 [History Confirmed 12/25/24] acetaminophen 500 mg tablet (Acetaminophen Extra Strength) 1,000 mg (2 x 500 mg) PO Q6H PRN pain #90 tabs 10/13/24 [Rx Confirmed 12/25/24] aspirin 81 mg tablet,delayed release 81 mg PO BID #60 tabs 10/13/24 [Rx Confirmed 12/25/24] doxycycline hyclate 100 mg tablet 100 mg PO BID #14 tabs 10/13/24 [Rx Confirmed 12/25/24] gabapentin 300 mg capsule 300 mg PO .qhs #30 caps 10/13/24 [Rx Confirmed 12/25/24] oxycodone 5 mg tablet 5 mg PO Q6H PRN pain #28 tabs 10/13/24 [Rx Confirmed 12/25/24] sennosides 8.6 mg-docusate sodium 50 mg tablet (Senna-S) 1 tab-cap PO QDAY #30 tabs 10/13/24 [Rx Confirmed 12/25/24] hydrocodone 7.5 mg-acetaminophen 325 mg tablet 1 tab PO Q6H PRN pain #28 tabs 10/28/24 [Rx Confirmed 12/25/24] pregabalin 75 mg capsule 75 mg PO BID #60 caps 10/28/24 [Rx Confirmed 12/25/24] cyclobenzaprine 5 mg tablet 5 mg PO TID PRN muscle spasm #30 tabs 11/18/24 [Rx Confirmed 12/25/24] Exam Exam Patient is in no acute distress and is cooperative with the examination today. Patient has a normal mood and affect. Breathing is nonlabored. In no respiratory distress. Bilateral extremities were evaluated and demonstrates sensation intact to light touch. Palpable pedal pulses are present. No significant edema is present. Right knee incisions clean dry intact. Range of motion is 0 to 110 degrees. Incision is completely healed and it looks fantastic Left knee incisions clean dry intact. Range of motion 0 to 100 degrees X-rays demonstrate cementless total knee replacement in good alignment position. Assessment and Plan Problem List (1) Osteoarthritis of left knee: Status: Acute (2) History of total right knee replacement: Status: Acute Plan: Patient is a 58-year-old male status post Left total knee replacement. He is doing well. He is doing well and wants to return to work. Office Procedures GNS Level of Care Nursing/Assessment Patient Status: Established Patient Nursing Assessment/Reassesment: Medication Reconciliation, Update PMH in EMR and Vital Signs Coordination of Care: Complex Care and Chronic Disease 1-5, Education Complex Pt/Fam, Consent,records obtained, informed consent, Results/Orders obtained and Staff clarify orders Special Needs: Language special needs Established Patient Charge Established Patient Point Assignment: 95 Established Patient Point Charge: EP Level 3 (80-115) MA Intake Visit Data Collection New Patient or Established: Established Patient (seen at [facility] within 3 years) Reason for Visit:: FOLLOW UP KNEE Seen by Clinical Staff ONLY (RN/MA): No 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 PCP or OBGYN visit in last 3 months: Yes Hx Now: No Do You Feel Safe at Home: Yes Authorities Contacted: N/A Questionairres Past Medical History Past Medical History Have you ever been diagnosed with any of the following: Neurological Problems Seizures: No Cardiology Problems Congestive Heart Failure: No Hypertension: Yes Respiratory Problems Chronic Obstructive Pulmonary Disease (COPD): No Smoking: No Smoking Cessation Counseling: No Smoking Exposure: No Tobacco Use: No Stomache/Intestinal Problems Hepatitis: No Obesity: Yes Genital/Urinary Problems Renal Disease: No Musculoskeletal Problems Arthritis: Yes Endocrine Problems Diabetes Mellitus Type 1: No Diabetes Mellitus Type 2: Yes Other Problems Hospitalization: No Shingles: No Blood Transfusions: No Blood Transfusion Reaction: No Anesthesia Reactions: No Cancer: No Subjective Visit Visit for: follow up visit and knee Immunization / Flu Flu Vaccine in the Last 12 Months: Yes Flu Vaccine Exclusion Criteria: Already Received History of Present Illness Chief complaint: Left knee replacement Patient is 10 weeks status post left total knee replacement . he is doing well. He would like to return to work Personal History Red flag PMH: none Pain Pain level (0-10): 0 Pain duration: 09/2024 Pain location: anterior Pain quality: sharp, burning, tingling and other (specify) (SWELLING) Pain timing: night and increases with activity Associated signs & symptoms: weakness Ambulatory data Ambulatory device: cane Walking distance (minutes): 1 Treatments Number of previous injections: 0 Improvement with previous injections: No Number of Physical Therapy sessions: 8 Improvement with PT: Yes Improvement with NSAIDS: n/a Review of Systems Review of Systems: All systems negative unless otherwise noted in HPI.
[2024-12-25 13:10] VITALS: BP 133/87; PULSE 80; RESP 18; TEMP 36.2; O2SAT 98; BMI 32.1
== END 2024-12-25 13:16 | disposition home or self-care (01) ==
LOC: HODSRG 12:50
PROVIDERS: PCP Physician Assistant; Referring Provider Physician Assistant; Supervising Provider Orthopaedic Surgery Adult Reconstructive Orthopaedic Surgery; Visit Provider Orthopaedic Surgery Adult Reconstructive Orthopaedic Surgery
DX: M17.12 Unilateral primary osteoarthritis, left knee (principal); Z96.652 Presence of left artificial knee joint; I10 Essential (primary) hypertension; E11.9 Type 2 diabetes mellitus without complications; E66.9 Obesity, unspecified
CPT/HCPCS: 99213; G0463

== ENCOUNTER 2025-02-17 09:31 | Outpatient (AMB) | payer MEDICAID, SELFPAY ==
--- NOTE | 2025-02-17 09:49 | ORTHONT_ITS ---
Vital signs 02/17/25 09:51 Height 1.68 m Height Method Measured Weight 86.636 kg Weight Measurement Method Standing Scale BMI 30.7 BP 106/69 Blood Pressure Source Automatic Cuff Blood Pressure Location Left Upper Arm Position Sitting Respiration 18 Pulse 85 Pulse Source Monitor Temp 97.7 F Temp Source Temporal Artery Scan Pulse Oximetry (%) 97 Oxygen Delivery Method Room Air Med/Allergies Allergies & Medications Allergies No Known Allergies Allergy (Verified 02/17/25 09:52) Medication Reconciliation losartan 50 mg tablet 50 mg PO QDAY 05/02/24 [History Confirmed 02/17/25] empagliflozin 10 mg tablet (Jardiance) 10 mg PO QAM 05/23/24 [History Confirmed 02/17/25] glipizide 2.5 mg tablet 2.5 mg PO QDAY 05/23/24 [History Confirmed 02/17/25] metformin 500 mg tablet 500 mg PO QDAY 05/23/24 [History Confirmed 02/17/25] semaglutide 0.25 mg or 0.5 mg (2 mg/3 mL) subcutaneous pen injector (Ozempic) 0.5 mg subcut QWEEK 07/08/24 [History Confirmed 02/17/25] acetaminophen 500 mg tablet (Acetaminophen Extra Strength) 1,000 mg (2 x 500 mg) PO Q6H PRN pain #90 tabs 10/13/24 [Rx Confirmed 02/17/25] aspirin 81 mg tablet,delayed release 81 mg PO BID #60 tabs 10/13/24 [Rx Confirmed 02/17/25] doxycycline hyclate 100 mg tablet 100 mg PO BID #14 tabs 10/13/24 [Rx Confirmed 02/17/25] gabapentin 300 mg capsule 300 mg PO .qhs #30 caps 10/13/24 [Rx Confirmed 02/17/25] oxycodone 5 mg tablet 5 mg PO Q6H PRN pain #28 tabs 10/13/24 [Rx Confirmed 02/17/25] sennosides 8.6 mg-docusate sodium 50 mg tablet (Senna-S) 1 tab-cap PO QDAY #30 tabs 10/13/24 [Rx Confirmed 02/17/25] hydrocodone 7.5 mg-acetaminophen 325 mg tablet 1 tab PO Q6H PRN pain #28 tabs 10/28/24 [Rx Confirmed 02/17/25] pregabalin 75 mg capsule 75 mg PO BID #60 caps 10/28/24 [Rx Confirmed 02/17/25] cyclobenzaprine 5 mg tablet 5 mg PO TID PRN muscle spasm #30 tabs 11/18/24 [Rx Confirmed 02/17/25] Exam Exam Patient is in no acute distress and is cooperative with the examination today. Patient has a normal mood and affect. Breathing is nonlabored. In no respiratory distress. Bilateral extremities were evaluated and demonstrates sensation intact to light touch. Palpable pedal pulses are present. No significant edema is present. Right knee incisions clean dry intact. Range of motion is 0 to 110 degrees. Incision is completely healed and it looks fantastic Left knee incisions clean dry intact. Range of motion 0 to 100 degrees X-rays demonstrate cementless total knee replacement in good alignment position. Assessment and Plan Problem List (1) Osteoarthritis of left knee: Status: Acute (2) History of total right knee replacement: Status: Acute Plan: Patient is a 58-year-old male status post Left total knee replacement. He is doing well. He is doing well and is back at work. He can see me on an as-needed basis at this point Office Procedures GNS Level of Care Nursing/Assessment Patient Status: Established Patient Nursing Assessment/Reassesment: Medication Reconciliation, Update PMH in EMR and Vital Signs Coordination of Care: Complex Care and Chronic Disease 1-5, Education Complex Pt/Fam, Consent,records obtained, informed consent, Results/Orders obtained and Staff clarify orders Special Needs: Language special needs Established Patient Charge Established Patient Point Assignment: 95 Established Patient Point Charge: EP Level 3 (80-115) MA Intake Visit Data Collection New Patient or Established: Established Patient (seen at [facility] within 3 years) Reason for Visit:: FOLLOW UP KNEE Seen by Clinical Staff ONLY (RN/MA): No 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 PCP or OBGYN visit in last 3 months: Yes Hx Now: No Do You Feel Safe at Home: Yes Authorities Contacted: N/A Questionairres Past Medical History Past Medical History Have you ever been diagnosed with any of the following: Neurological Problems Seizures: No Cardiology Problems Congestive Heart Failure: No Hypertension: Yes Respiratory Problems Chronic Obstructive Pulmonary Disease (COPD): No Smoking: No Smoking Cessation Counseling: No Smoking Exposure: No Tobacco Use: No Stomache/Intestinal Problems Hepatitis: No Obesity: Yes Genital/Urinary Problems Renal Disease: No Musculoskeletal Problems Arthritis: Yes Endocrine Problems Diabetes Mellitus Type 1: No Diabetes Mellitus Type 2: Yes Other Problems Hospitalization: No Shingles: No Blood Transfusions: No Blood Transfusion Reaction: No Anesthesia Reactions: No Cancer: No Subjective Visit Visit for: follow up visit and knee Immunization / Flu Flu Vaccine in the Last 12 Months: Yes Flu Vaccine Exclusion Criteria: Already Received History of Present Illness Chief complaint: Left knee replacement Patient is 10 weeks status post left total knee replacement . he is doing well. He IS BACK at work and is doing well. Personal History Red flag PMH: none Pain Pain level (0-10): 0 Pain duration: 09/2024 Pain location: anterior Pain quality: sharp, burning, tingling and other (specify) (SWELLING) Pain timing: night and increases with activity Associated signs & symptoms: weakness Ambulatory data Ambulatory device: cane Walking distance (minutes): 1 Treatments Number of previous injections: 0 Improvement with previous injections: No Number of Physical Therapy sessions: 8 Improvement with PT: Yes Improvement with NSAIDS: n/a Review of Systems Review of Systems: All systems negative unless otherwise noted in HPI.
[2025-02-17 09:51] VITALS: BP 106/69; PULSE 85; RESP 18; TEMP 36.5; O2SAT 97; BMI 30.7
== END 2025-02-17 10:24 | disposition home or self-care (01) ==
LOC: HODSRG 09:31
PROVIDERS: PCP Physician Assistant; Referring Provider Physician Assistant; Supervising Provider Orthopaedic Surgery Adult Reconstructive Orthopaedic Surgery; Visit Provider Orthopaedic Surgery Adult Reconstructive Orthopaedic Surgery
DX: M17.12 Unilateral primary osteoarthritis, left knee (principal); Z96.652 Presence of left artificial knee joint; I10 Essential (primary) hypertension; E11.9 Type 2 diabetes mellitus without complications; E66.9 Obesity, unspecified; Z68.30 Body mass index [BMI] 30.0-30.9, adult
CPT/HCPCS: 99213; G0463